=== PATIENT | male | born 1965 | race Caucasian/White ===

== ENCOUNTER 2019-07-09 11:49 | Inpatient (IN) | payer BC, OTHER ==
[~2019-07-09] VITALS: Ht 167.6 cm; Wt 65.8 kg
[2019-07-09] VITALS (9 sets, daily range): BP systolic 142–166; BP diastolic 68–88; O2SAT 93–98
[~2019-07-09 11:49] MED LIST: UNRESOLVED CLARIFICATION ENTRY XX SCH
[2019-07-09] MEDS: IPRATROPIUM 0.5MG/ALBUTEROL 2.5MG INH SOL UD 3ML (DUONEB)(J7620) NEB SCH ×2 (14:00→20:53)
--- NOTE | 2019-07-09 14:32 | HPEPDOC ---
General Date of Admission 07/09/19 Date of Service: Jul 09, 2019 Chief Complaint The patient is a 54-year-old male admitted with a reason for visit of Bilateral Pe,Pulmonary Inarct. Source: Patient Exam Limitations: No limitations Timing/Duration: 24 hours Severity: Moderate Associated Symptoms: Chest Pain, Shortness of breath History of Present Illness Patient is 54 years old male with past medical history of active smoking transferred from the [facility] with acute hypoxemic respiratory failure secondary to bilateral pulmonary emboli and lung infarcts. Patient stated that yesterday suddenly he started feeling right chest pain and developed shortness of breath. He went to the hospital and he was found to have on CTA moderate to large bilateral pulmonary emboli with multifocal areas of pulmonary infarction superimposed on account of moderate to severe COPD with biapical bullous changes. Patient received anticoagulation with Lovenox, oxygen therapy due to hypoxia, oxygen saturation was in the middle of 80s. When I saw patient, he was on the 3 L of oxygen resting comfortably on the bed. Patient denied any fever, chills, nausea, vomiting, palpitations, diarrhea or dysuria. He denied any recent cough, or increased sputum production. Also note patient does not have PCP and did not see doctors for years. Patient doesn't have any family history of hypercoagulability disorder. Also patient stated that he didn't lose weight and he didn't have colonoscopy. Home Medications No Active Prescriptions or Reported Meds Allergies Coded Allergies: No Known Allergies (Verified Allergy, Unknown, 07/09/19) Past Medical History Medical History Active smoker Family History Father had coronary artery diseases, EtOH abuse and diabetes Social History * Smoker: current smoker, greater than 1 pack/day Alcohol: Denies Drugs: denies A-FIB/CHADSVASC A-FIB History Current/History of A-Fib/PAF?: No Current PO Anticoag Therapy: No Review of Systems Constitutional: Denies: Chills, Fever Eyes: Denies: Pain, Vision change ENT: Denies: Head Aches Skin: Denies: Rash Pulmonary: Reports: Dyspnea, Pleuritic Chest Pain Cardiovascular: Denies: Palpitations Gastrointestinal: Denies: Nausea, Vomiting Genitourinary: Denies: Dysuria, Frequency Hematologic: Denies: Bruising, Bleeding Excessively Endocrine: Denies: Polydipsia Musculoskeletal: Denies: Neck Pain Neurological: Denies: Weakness, Numbness Psych: Reports: Mood Normal Physical Examination General Exam: Positive: Alert, Cooperative Eye Exam: Positive: PERRLA ENT Exam: Positive: Atraumatic, Mucous membr. moist/pink Neck Exam: Positive: Supple, JVD Chest Exam: Positive: Clear to auscultation Heart Exam: Positive: Rate Normal Telemetry: Positive: No significant arrhythmia Abdomen Exam: Positive: Normal bowel sounds Extremity Exam: Positive: Clubbing; Negative: Cyanosis Skin Exam: Positive: Nl turgor and temperature Neuro Exam: Positive: Strength at 5/5 X4 ext, Cranial Nerves 3-12 NL Psych Exam: Positive: Mental status NL Vital Signs HR 75 Assessment/Plan Patient is 54 years old male with past medical history of active smoking transferred from the [facility] with acute hypoxemic respiratory failure secondary to bilateral pulmonary emboli and lung infarcts. Patient stated that yesterday suddenly he started feeling right chest pain and developed shortness of breath. He went to the hospital and he was found to have on CTA moderate to large bilateral pulmonary emboli with multifocal areas of pulmonary infarction superimposed on account of moderate to severe COPD with biapical bullous changes. Problems (1) Acute respiratory failure with hypoxia Status: Acute Problem Text: Secondary to bilateral pulmonary emboli I started anticoagulation with Xarelto 15 mg twice a day Hypercoagulability workup ordered I recommended colonoscopy in the outpatient settings to rule out malignancy Follow-up with ict developer in the outpatient settings (2) Pulmonary embolism Status: Acute Response to Treatment: Uncontrolled Problem Text: See above Plan / VTE VTE Prophylaxis Ordered?: Yes ZAHRA STOVALL DO Jul 09, 2019 14:31
[2019-07-09 15:09] LABS: ABG TOTAL CO2 27.6 MEQ/L (22.0-29.0); ABG pH (ARTERIAL) 7.437 UNITS (7.350-7.450)
[2019-07-09 15:10] LABS: ABG BASE EXCESS 2.1 (-2.0-2.0); ABG HCO3 26.4 MEQ/L (22.0-26.0); ABG O2 SATURATION 96.6 % (95.0-99.0); ABG STANDARD HCO3 26.3 MEQ/L (22.0-26.0)
[2019-07-09 15:11] LABS: BASO % 0.2 % (0.0-1.0); HEMATOCRIT 41.2 % (42.0-52.0); HEMOGLOBIN 13.8 g/dl (13.5-17.5); LYMPH # 1.9 10^3/uL (1.5-5.0); LYMPH % 12.1 % (24.0-44.0); MEAN CORPUSCULAR HEMOGLOBIN 30.7 pg (27.0-33.0); MEAN CORPUSCULAR HGB CONC 33.5 g/dl (32.0-36.5); MEAN CORPUSCULAR VOLUME 91.6 fl (80.0-96.0); MONO # 1.2 10^3/uL (0.0-0.8); MONO % 7.5 % (0.0-5.0); NEUTROPHILS # 12.4 10^3/uL (1.5-8.5); NEUTROPHILS % 79.8 % (36.0-66.0); PLATELET COUNT, AUTOMATED 194 10^3/uL (150-450); WHITE BLOOD COUNT 15.5 10^3/uL (4.0-10.0)
[2019-07-09 15:29] LABS: INR 1.23; PROTHROMBIN TIME 15.2 SECONDS (11.8-14.0)
[2019-07-09] MEDS ORDERED: RIVAROXABAN 15 MG TAB (XARELTO) PO ONE (15:30)
[2019-07-09] MEDS ORDERED: IPRATROPIUM 0.5MG/ALBUTEROL 2.5MG INH SOL UD 3ML (DUONEB)(J7620) NEB PRN (16:00)
[2019-07-09] MEDS: ACETAMINOPHEN TAB 650MG DOSE (2X325MG) PO PRN (20:54)
[2019-07-10] VITALS (24 sets, daily range): BP systolic 129–152; BP diastolic 63–86; O2SAT 91–99
[2019-07-10] MEDS: IPRATROPIUM 0.5MG/ALBUTEROL 2.5MG INH SOL UD 3ML (DUONEB)(J7620) NEB SCH ×4 (02:10→19:56)
[2019-07-10 07:14] LABS: ALBUMIN 2.8 GM/DL (3.2-5.2); ALT/SGPT 12 U/L (12-78); BILIRUBIN,TOTAL 0.7 MG/DL (0.2-1.0); BLOOD UREA NITROGEN 11 MG/DL (7-18); CALCIUM LEVEL 8.5 MG/DL (8.5-10.1); CARBON DIOXIDE LEVEL 27 MEQ/L (21-32); CHLORIDE LEVEL 100 MEQ/L (98-107); CREATININE FOR GFR 0.85 MG/DL (0.70-1.30); GLOMERULAR FILTRATION RATE > 60.0 (>56); GLUCOSE, FASTING 94 MG/DL (70-100); POTASSIUM SERUM 4.1 MEQ/L (3.5-5.1); SODIUM LEVEL 133 MEQ/L (136-145); TOTAL PROTEIN 6.4 GM/DL (6.4-8.2)
[2019-07-10] MEDS: RIVAROXABAN 15 MG TAB (XARELTO) PO SCH ×2 (09:10→18:02)
[2019-07-10] MEDS ORDERED: SLF 3 ML SYR IV PRN (09:15)
[2019-07-10] MEDS: ACETAMINOPHEN TAB 650MG DOSE (2X325MG) PO PRN ×2 (09:28→16:29)
--- NOTE | 2019-07-10 10:14 | IPNPDOC ---
Text Note Date of Service The patient was seen on 07/10/19. NOTE Subjective: Pt continues to have shortness of breath, his oxygen requirements 3 L. Patient stated that he has a bilateral chest pain on the deep inspiration Objective: VITAL SIGNS: Please see below. GENERAL APPEARANCE: Well-nourished, well-developed, not in apparent distress HEENT: Normocephalic, atraumatic. Mucous members moist and pink CARDIOVASCULAR: Regular rate and rhythm. No murmurs, rubs or gallops. Radial pulses are intact. There is no lower extremity edema LUNGS: Diminished lung sounds ABDOMEN: Abdomen is soft and nontender. MUSCULOSKELETAL: Range of motion is intact in all 4 extremities NEUROLOGICAL: Cranial nerves II-12 are grossly intact. Speech is not dysarthric Assessment/Plan Patient is 54 years old male with past medical history of active smoking transferred from the [facility] with acute hypoxemic respiratory failure secondary to bilateral pulmonary emboli and lung infarcts. Patient stated that yesterday suddenly he started feeling right chest pain and developed shortness of breath. He went to the hospital and he was found to have on CTA moderate to large bilateral pulmonary emboli with multifocal areas of pulmonary infarction superimposed on account of moderate to severe COPD with biapical bullous changes. Problems (1) Acute respiratory failure with hypoxia Secondary to bilateral pulmonary emboli I started anticoagulation with Xarelto 15 mg twice a day Hypercoagulability workup ordered I recommended colonoscopy in the outpatient settings to rule out malignancy Follow-up with sweatband separator in the outpatient settings (2) Pulmonary embolism Review is as above and is usually only when he sees patient on last See above VSEsmer, I+O VSEsmer, I+O Laboratory Tests 07/09/19 14:45 07/10/19 06:09 Vital Signs Date Time Temp Pulse Resp B/P (MAP) Pulse Ox O2 Delivery O2 Flow Rate FiO2 07/10/19 08:00 99.0 84 18 144/68 (93) 94 Nasal Cannula 3.0 I&O- Last 24 Hours up to 6 AM 07/10/19 06:00 Intake Total 300 ml Output Total 1275 ml Balance -975 ml ZAHRA STOVALL DO Jul 10, 2019 10:14
--- NOTE | 2019-07-10 13:22 | ECHO ---
DATE OF STUDY: 07/09/2019 REFERRING PHYSICIAN: Dr. Edmund Arce INDICATION: Dyspnea, unspecified. HEIGHT: 107 cm WEIGHT: 61.2 kg 2-D MEASUREMENTS: Aortic root: 3.2 cm Left atrium: 3.3 cm Ventricular septum: 0.74 cm Posterior wall: 1.12 cm Left ventricle diastole: 5.2 cm Aortic annulus: 2.3 cm Inferior vena cava: 2.4 cm with marked reduction of respiratory variation suggestive of elevated CVP of at least 20 mmHg. DOPPLER MEASUREMENTS: No aortic regurgitation. Aortic valve velocity: 181 cm/s LVOT velocity: 112 cm/s LVOT VTI: 22.3 cm No mitral regurgitation. Mitral E velocity: 104 cm/s Mitral A velocity: 63.1 cm/s Mitral deceleration time: 174 ms Very mild tricuspid regurgitation. Estimated right ventricle systolic pressure at least 62 mmHg assuming an atrial pressure of at least 20 mmHg. No pulmonic regurgitation. Pulmonary acceleration time: 90 ms MITRAL ANNULAR TISSUE DOPPLER: E prime septal: 9.46 cm/s E prime lateral: 13.6 cm/s DESCRIPTION: Rhythm was sinus. Image quality was good. This is a 2-D, M-mode, color flow Doppler and pulse waved Doppler examination and included mitral annular tissue Doppler. CONCLUSIONS: 1. Suggestive of severe elevation of estimated right ventricle systolic pressure (at least 62 mmHg). Very mild tricuspid regurgitation. Normal right ventricle size and systolic function. Right atrium appeared normal in size. 2. Inferior vena cava dilatation with marked reduction of respiratory variation suggestive of elevated central venous pressure at least 20 mmHg. 3. Normal left ventricle internal dimensions and wall thickness. Normal regional LV wall motion and wall thickening. Normal LV systolic function. Left ventricular ejection fraction (LVEF) 65% by visual estimate. Normal LV diastolic function. 4. Tiny amount of pericardial fluid within normal limits. 5. Otherwise, normal-appearing echocardiogram-Doppler findings.
[2019-07-10] MEDS: SLF 3 ML SYR IV SCH ×2 (16:30→22:28)
--- NOTE | 2019-07-10 17:24 | REP ---
Clinical: Dyspnea. Pneumonia. Technique: PA and lateral. Comparison: None. Findings: Bilateral lower lobe infiltrates (right greater than left) and small right effusion consistent with multifocal pneumonia. No pneumothorax. Cardiac silhouette is normal. Skeletal structures are intact. Impression: Multifocal pneumonia (right greater than left). Electronically Signed by John Burgos MD 07/10/2019 05:15 P
[2019-07-10 18:09] LABS: BASO % 0.2 % (0.0-1.0); EOS % 0.1 % (0.0-3.0); HEMATOCRIT 40.9 % (42.0-52.0); HEMOGLOBIN 13.4 g/dl (13.5-17.5); LYMPH # 1.3 10^3/uL (1.5-5.0); LYMPH % 9.8 % (24.0-44.0); MEAN CORPUSCULAR HEMOGLOBIN 29.7 pg (27.0-33.0); MEAN CORPUSCULAR HGB CONC 32.8 g/dl (32.0-36.5); MEAN CORPUSCULAR VOLUME 90.7 fl (80.0-96.0); MONO # 1.1 10^3/uL (0.0-0.8); NEUTROPHILS # 11.1 10^3/uL (1.5-8.5); NEUTROPHILS % 81.4 % (36.0-66.0); PLATELET COUNT, AUTOMATED 209 10^3/uL (150-450); RED BLOOD COUNT 4.51 10^6/uL (4.30-6.10); WHITE BLOOD COUNT 13.6 10^3/uL (4.0-10.0)
[2019-07-10 18:30] LABS: BLOOD UREA NITROGEN 10 MG/DL (7-18); CALCIUM LEVEL 8.8 MG/DL (8.5-10.1); CARBON DIOXIDE LEVEL 26 MEQ/L (21-32); CHLORIDE LEVEL 99 MEQ/L (98-107); CREATININE FOR GFR 0.81 MG/DL (0.70-1.30); GLOMERULAR FILTRATION RATE > 60.0 (>56); GLUCOSE, FASTING 114 MG/DL (70-100); POTASSIUM SERUM 3.8 MEQ/L (3.5-5.1); SODIUM LEVEL 132 MEQ/L (136-145)
[2019-07-11] VITALS (23 sets, daily range): BP systolic 121–162; BP diastolic 60–82; O2SAT 88–97
[2019-07-11] MEDS: IPRATROPIUM 0.5MG/ALBUTEROL 2.5MG INH SOL UD 3ML (DUONEB)(J7620) NEB SCH ×4 (02:00→20:12)
[2019-07-11] MEDS: ACETAMINOPHEN TAB 650MG DOSE (2X325MG) PO PRN ×3 (04:17→18:31)
[2019-07-11] MEDS: SLF 3 ML SYR IV SCH ×3 (05:13→21:35)
[2019-07-11 06:11] LABS: HEMATOCRIT 39.8 % (42.0-52.0); HEMOGLOBIN 13.1 g/dl (13.5-17.5); MEAN CORPUSCULAR HEMOGLOBIN 29.8 pg (27.0-33.0); MEAN CORPUSCULAR HGB CONC 32.9 g/dl (32.0-36.5); MEAN CORPUSCULAR VOLUME 90.7 fl (80.0-96.0); PLATELET COUNT, AUTOMATED 214 10^3/uL (150-450); RED BLOOD COUNT 4.39 10^6/uL (4.30-6.10); WHITE BLOOD COUNT 11.7 10^3/uL (4.0-10.0)
[2019-07-11 06:34] LABS: BLOOD UREA NITROGEN 10 MG/DL (7-18); CALCIUM LEVEL 8.5 MG/DL (8.5-10.1); CARBON DIOXIDE LEVEL 26 MEQ/L (21-32); CHLORIDE LEVEL 100 MEQ/L (98-107); GLOMERULAR FILTRATION RATE > 60.0 (>56); GLUCOSE, FASTING 103 MG/DL (70-100); SODIUM LEVEL 132 MEQ/L (136-145)
--- NOTE | 2019-07-11 07:45 | ECGEPIP ---
[facility] Test Date: 2019-07-09 Pat Name: DRE NOLAND Department: Room: [place] [address] Gender: Male Staff Reporter: KIRSTEN : 1965 Requested By: ZAHRA STOVALL Order Number: [id number] Reading MD: Kevin Bonner Measurements Intervals [place] Rate: 64 P: 66 PA: 138 QRS: 61 QRSD: 97 T: 58 QT: 424 QTc: 439 Interpretive Statements Normal sinus rhythm ST elevation in multiple leads, consider ischemia or early repolarization CORRELATE CLINICALLY Comparison tracing not on file Electronically Signed on 07-11-2019 7:45:41 EST by Kevin Bonner
[2019-07-11] MEDS ORDERED: FLUBLOK(EGG FREE)(QUAD)INFLUENZA VACC 0.5ML SYRINGE (90682)18YRS&OLDER IM ONE (09:00)
[2019-07-11] MEDS: RIVAROXABAN 15 MG TAB (XARELTO) PO SCH ×2 (10:31→17:27)
--- NOTE | 2019-07-11 10:51 | IPNPDOC ---
Text Note Date of Service The patient was seen on 07/11/19. NOTE Subjective: Pt continues to have shortness of breath, his oxygen requirements 2 L. Patient stated that he has a bilateral chest pain on the deep inspiration. Patient was febrile yesterday. Fever subsided after Tylenol Objective: VITAL SIGNS: Please see below. GENERAL APPEARANCE: Well-nourished, well-developed, not in apparent distress HEENT: Normocephalic, atraumatic. Mucous members moist and pink CARDIOVASCULAR: Regular rate and rhythm. No murmurs, rubs or gallops. Radial pulses are intact. There is no lower extremity edema LUNGS: Diminished lung sounds ABDOMEN: Abdomen is soft and nontender. MUSCULOSKELETAL: Range of motion is intact in all 4 extremities NEUROLOGICAL: Cranial nerves II-12 are grossly intact. Speech is not dysarthric Assessment/Plan Patient is 54 years old male with past medical history of active smoking transferred from the [facility] with acute hypoxemic respiratory failure secondary to bilateral pulmonary emboli and lung infarcts. Patient stated that yesterday suddenly he started feeling right chest pain and developed shortness of breath. He went to the hospital and he was found to have on CTA moderate to large bilateral pulmonary emboli with multifocal areas of pulmonary infarction superimposed on account of moderate to severe COPD with biapical bullous changes. Problems (1) Acute respiratory failure with hypoxia Secondary to bilateral pulmonary emboli I started anticoagulation with Xarelto 15 mg twice a day Hypercoagulability workup pending I recommended colonoscopy in the outpatient settings to rule out malignancy Follow-up with it consulting manager in the outpatient settings (2) Pulmonary embolism See above Fever Most likely secondary to pulmonary embolism Blood culture pending Respiratory viral panel negative Patient is afebrile in the morning, he doesn't have cough, sputum, diarrhea, weakness VS,Fishbone, I+O VS, Fishbone, I+O Laboratory Tests 07/10/19 17:48 07/11/19 05:35 Vital Signs Date Time Temp Pulse Resp B/P (MAP) Pulse Ox O2 Delivery O2 Flow Rate FiO2 07/11/19 08:00 2.0 07/11/19 08:00 98.0 62 20 121/63 (82) 90 Nasal Cannula I&O- Last 24 Hours up to 6 AM 07/11/19 06:00 Intake Total 2430 ml Output Total 925 ml Balance 1505 ml ZAHRA STOVALL DO Jul 11, 2019 10:51
[2019-07-12] VITALS: O2SAT 93
[2019-07-12 00:12] VITALS: BP 161/79
[2019-07-12] MEDS: IPRATROPIUM 0.5MG/ALBUTEROL 2.5MG INH SOL UD 3ML (DUONEB)(J7620) NEB SCH ×3 (01:34→14:00)
[2019-07-12] MEDS: SLF 3 ML SYR IV SCH ×2 (05:11→14:00)
[2019-07-12 05:40] LABS: HEMATOCRIT 38.3 % (42.0-52.0); MEAN CORPUSCULAR HEMOGLOBIN 30.4 pg (27.0-33.0); MEAN CORPUSCULAR HGB CONC 33.9 g/dl (32.0-36.5); MEAN CORPUSCULAR VOLUME 89.5 fl (80.0-96.0); PLATELET COUNT, AUTOMATED 238 10^3/uL (150-450); RED BLOOD COUNT 4.28 10^6/uL (4.30-6.10); WHITE BLOOD COUNT 9.3 10^3/uL (4.0-10.0)
[2019-07-12 06:00] VITALS: BP 121/71
[2019-07-12 06:05] LABS: BLOOD UREA NITROGEN 11 MG/DL (7-18); CALCIUM LEVEL 8.9 MG/DL (8.5-10.1); CARBON DIOXIDE LEVEL 25 MEQ/L (21-32); CHLORIDE LEVEL 99 MEQ/L (98-107); CREATININE FOR GFR 0.78 MG/DL (0.70-1.30); GLOMERULAR FILTRATION RATE > 60.0 (>56); GLUCOSE, FASTING 101 MG/DL (70-100); POTASSIUM SERUM 4.1 MEQ/L (3.5-5.1); SODIUM LEVEL 132 MEQ/L (136-145)
[2019-07-12] MEDS: RIVAROXABAN 15 MG TAB (XARELTO) PO SCH (08:20)
[2019-07-12] MEDS ORDERED: lisinopriL 5 MG TAB PO SCH (09:00)
[2019-07-12 09:30] VITALS: BP 123/70
[2019-07-12] MEDS ORDERED: LISI-542 PO (13:58)
[2019-07-12] MEDS ORDERED: XARE15TA PO (13:58)
[2019-07-12 14:00] VITALS: BP 167/89
[2019-07-12] MEDS: ACETAMINOPHEN TAB 650MG DOSE (2X325MG) PO PRN (14:30)
[2019-07-12] MEDS ORDERED: lisinopriL 10 MG TAB PO ONE (15:00)
--- NOTE | 2019-07-12 18:26 | DS.PDOC ---
Discharge Summary General Date of Admission Jul 09, 2019 at 13:25 Date of Discharge 07/12/19 Discharge Summary PROCEDURES PERFORMED DURING STAY: None ADMITTING DIAGNOSES: Acute respiratory failure with hypoxia Pulmonary embolism Fever DISCHARGE DIAGNOSES: Acute respiratory failure with hypoxia Pulmonary embolism Fever COMPLICATIONS/CHIEF COMPLAINT: Bilateral Pe,Pulmonary Inarct. HISTORY OF PRESENT ILLNESS: Patient is 54 years old male with past medical history of active smoking transferred from the [facility] with acute hypoxemic respiratory failure secondary to bilateral pulmonary emboli and lung infarcts. Patient stated that yesterday suddenly he started feeling right chest pain and developed shortness of breath. He went to the hospital and he was found to have on CTA moderate to large bilateral pulmonary emboli with multifocal areas of pulmonary infarction superimposed on account of moderate to severe COPD with biapical bullous changes. Patient received anticoagulation with Lovenox, oxygen therapy due to hypoxia, oxygen saturation was in the middle of 80s. When I saw patient, he was on the 3 L of oxygen resting comfortably on the bed. Patient denied any fever, chills, nausea, vomiting, palpitations, diarrhea or dysuria. He denied any recent cough, or increased sputum production. Also note patient does not have PCP and did not see doctors for years. Patient doesn't have any family history of hypercoagulability disorder. Also patient stated that he didn't lose weight and he didn't have colonoscopy. HOSPITAL COURSE: The following issue addressed Acute respiratory failure with hypoxia Resolved Secondary to bilateral pulmonary emboli I started anticoagulation with Xarelto 15 mg twice a day Hypercoagulability workup pending. Today patient breathing markedly improved he was able to walk w/o oxygen. He denies any chest pain, palpitations. I recommended colonoscopy in the outpatient settings to rule out malignancy Follow-up with pattern maker in the outpatient settings in 2-3 days (2) Pulmonary embolism See above Fever Most likely secondary to pulmonary embolism Blood culture pending Respiratory viral panel negative Patient is afebrile in the morning, he doesn't have cough, sputum, diarrhea, weakness DISCHARGE MEDICATIONS: Please see below. ALLERGIES: Please see below. PHYSICAL EXAMINATION ON DISCHARGE: VITAL SIGNS: Please see below. GENERAL APPEARANCE: Well-nourished, well-developed, not in apparent distress HEENT: Normocephalic, atraumatic. Mucous members moist and pink CARDIOVASCULAR: Regular rate and rhythm. No murmurs, rubs or gallops. Radial pulses are intact. There is no lower extremity edema LUNGS: Diminished lung sounds ABDOMEN: Abdomen is soft and nontender. MUSCULOSKELETAL: Range of motion is intact in all 4 extremities NEUROLOGICAL: Cranial nerves II-12 are grossly intact. Speech is not dysarthric LABORATORY DATA: Please see below. IMAGING: See above PROGNOSIS: Favorable ACTIVITY: As tolerated. DIET: Cardiac DISCHARGE PLAN: Home DISPOSITION: Home, Self-Care. DISCHARGE INSTRUCTIONS: Follow-up with pattern maker and PCP ITEMS TO FOLLOWUP ON ON OUTPATIENT: Avoid heavy physical activities for next 10 days DISCHARGE CONDITION: Stable TIME SPENT ON DISCHARGE: Greater than 20 minutes. Vital Signs/I&Os Vital Signs Date Time Temp Pulse Resp B/P (MAP) Pulse Ox O2 Delivery O2 Flow Rate FiO2 07/12/19 14:00 100.3 68 20 167/89 (115) 93 Room Air 07/12/19 06:00 1.0 I&O- Last 24 Hours up to 6 AM 07/12/19 06:00 Intake Total 1860 ml Output Total 1425 ml Balance 435 ml Laboratory Data Labs 24H Laboratory Tests 2 07/12/19 05:20: Nucleated Red Blood Cells % (auto) 0.0, Anion Gap 8, Glomerular Filtration Rate > 60.0, Calcium Level 8.9 CBC/BMP Laboratory Tests 07/12/19 05:20 Microbiology Microbiology 07/10/19 Stool Occult Blood ([facility]) - Final, Complete 07/10/19 Blood Culture - Preliminary, Resulted No Growth after 48 hours. All Specime... 07/10/19 Respiratory Virus Panel (PCR) ([facility]) - Final, Complete Discharge Medications Scheduled Lisinopril (Lisinopril) 5 Mg Tablet, 5 MG PO DAILY Rivaroxaban (Xarelto) 15 Mg Tablet, 15 MG PO BID@18 You will need to take 15 mg twice a day for next 19 days, then take 20 mg daily at least for 6 months Allergies Coded Allergies: No Known Allergies (Verified Allergy, Unknown, 07/09/19) ZAHRA STOVALL DO Jul 12, 2019 18:26
[2019-07-13] MEDS ORDERED: lisinopriL 10 MG TAB PO SCH (09:00)
== END 2019-07-12 15:06 | disposition home or self-care (01) | DRG 134 ==
LOC: M PCU 13:25 → M MSPAV 07-12 00:12
PROVIDERS: ADMIT Family Medicine; ATTEND Internal Medicine
DX: I26.99 Other pulmonary embolism without acute cor pulmonale (principal); J96.01 Acute respiratory failure with hypoxia; R50.9 Fever, unspecified; J44.9 Chronic obstructive pulmonary disease, unspecified; F17.200 Nicotine dependence, unspecified, uncomplicated

== ENCOUNTER → 2020-04-13 | Outpatient (REF) | payer OTHER ==
[~2020-04-13] MED LIST changes: +LISI-542 PO; -UNRESOLVED CLARIFICATION ENTRY XX SCH; +XARE15TA PO
[2020-04-13 13:02] LABS: BASO # 0.1 10^3/uL (0.0-0.2); BASO % 1.1 % (0.0-1.0); EOS # 0.2 10^3/uL (0.0-0.5); EOS % 4.4 % (0.0-3.0); HEMOGLOBIN 14.7 g/dl (13.5-17.5); LYMPH # 2.2 10^3/uL (1.5-5.0); LYMPH % 39.6 % (24.0-44.0); MEAN CORPUSCULAR HEMOGLOBIN 31.1 pg (27.0-33.0); MEAN CORPUSCULAR HGB CONC 33.4 g/dl (32.0-36.5); MONO # 0.7 10^3/uL (0.0-0.8); MONO % 13.1 % (0.0-5.0); NEUTROPHILS # 2.3 10^3/uL (1.5-8.5); NEUTROPHILS % 41.4 % (36.0-66.0); PLATELET COUNT, AUTOMATED 271 10^3/uL (150-450); RED BLOOD COUNT 4.73 10^6/uL (4.30-6.10); WHITE BLOOD COUNT 5.5 10^3/uL (4.0-10.0)
[2020-04-13 13:13] LABS: ALBUMIN 3.7 GM/DL (3.2-5.2); ALT/SGPT 25 U/L (12-78); AMYLASE 81 U/L (25-115); BILIRUBIN,TOTAL 0.2 MG/DL (0.2-1.0); BLOOD UREA NITROGEN 16 MG/DL (7-18); CALCIUM LEVEL 9.3 MG/DL (8.5-10.1); CARBON DIOXIDE LEVEL 29 MEQ/L (21-32); CHLORIDE LEVEL 103 MEQ/L (98-107); CREATININE FOR GFR 0.88 MG/DL (0.70-1.30); GLOMERULAR FILTRATION RATE > 60.0 (>56); GLUCOSE, FASTING 87 MG/DL (70-100); LIPASE 183 U/L (73-393); MAGNESIUM LEVEL 2.2 MG/DL (1.8-2.4); POTASSIUM SERUM 4.4 MEQ/L (3.5-5.1); SODIUM LEVEL 137 MEQ/L (136-145); TOTAL PROTEIN 7.2 GM/DL (6.4-8.2)
== END ==
LOC: M SFHCCLAY 07:38
PROVIDERS: ATTEND Family Medicine
DX: R10.84 Generalized abdominal pain (principal); I10 Essential (primary) hypertension; R63.5 Abnormal weight gain

== ENCOUNTER 2020-08-19 10:23 | Emergency (ER) | payer BC, OTHER ==
[~2020-08-19] VITALS: Ht 167.6 cm; Wt 65.8 kg
[~2020-08-19 10:23] MED LIST changes: -LISI-542 PO; +LISI-898 PO
--- OUTSIDE RECORDS SUMMARY | 2020-08-19 10:29 | CCD ---
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 A ctive confirmed 469741657 ALLERGIES No Known Allergies ENCOUNTERS from 1965 to 2020-08-14 Encounter Location Date Provider Diagnosis [facility] [address] [place] [address] Aug Phuc Oh IMMUNIZATIONS No Information SOCIAL HISTORY Tobacco Use: Social History Observation Description Date Details (start date - stop date) Former Smoker Sex Assigned At : Social History Observation Description Sex Assigned At Unknown Audit Question Answer Notes Total Score: 5 Interpretation: Alcohol Education Language: Question Answer Notes Languages spoken: Amharic Uatsdin: Question Answer Notes Uatsdin 21 Jainism Domestic Violence: Question Answer Notes Status: Sexual Hx: Question Answer Notes Had sex in the last 12 months (vaginal, oral, or anal)? Yes Have you ever had an STD? No Prevention Strategies discussed: Other with Women only Use protection? No Drug and Alcohol Question Answer Notes Total Score: 0 Interpretation: No problems reported Tobacco Use: Question Answer Notes Are you a: former smoker Smoking Cessation Information Given 07/26/2019 Additional Findings: Tobacco Non-User Ex-moderate cigarette smoker (10-19/day) How long has it been since you last smoked? 6-12 months REASON FOR REFERRAL No Information VITAL SIGNS No information MEDICATIONS Medication SIG (Take, Route, Frequency, Duration) Notes Start Da te End Date Status Xarelto 20 MG 1 tablet with food Orally Once a day for 90 day(s) Active Xarelto 20 MG TAKE ONE TABLET BY MOUTH EVERY DAY WITH FOOD for 90 Active Lisinopril 5 MG 1 tablet Orally Once a day for 90 days Active PROCEDURES No Information RESULTS No Results REASON FOR VISIT [place] follow up-tachycardia MEDICAL (GENERAL) HISTORY Type Description Date Medical History HTN Medical History Hx of PE Surgical History Lasik eye surgery Hospitalization History [facility]- Bilateral PE 07/09/19 Goals Section No Information Health Concerns No Information MEDICAL EQUIPMENT No Information MENTAL STATUS No Information FUNCTIONAL STATUS No Information ASSESSMENTS No Information PLAN OF TREATMENT Medication Medication Name Sig Start Date Stop Date Xarelto 20 MG 1 tablet with food Orally Once a day for 90 day( s) Lisinopril 5 MG 1 tablet Orally Once a day for 90 days Next Appt Details Provider Name:Phuc Sukumar Oh, 09:00:00 AM, [address] [place] [address], [id number], Insurance Providers Payer Name Payer Address Payer Phone Insured Name Patient Relati onship to Insured Coverage Start Date Coverage End Date [facility] [address] [facility] [id number] GE [id number]
--- OUTSIDE RECORDS SUMMARY | 2020-08-19 10:30 | CCD | Continuity of Care Document ---
Author Author [facility] Address [address] [place] [address] Phone Care Team Providers Care Balcony Worker Name Role Phone SE LOCKETT PCP Allergies, Adverse Reactions, Alerts No allergy information available. Medications No medication information available. Problems No problem information available. Procedures Procedure Date Performed Status CHEST 1 VIEW August 12, 2020 completed Relevant Diagnostic Tests and/or Laboratory Data Laboratory Results Test Date/Time Result Interpretation Reference Range Result Co mment Performing Site White Blood Count August 12, 2020 12:50pm 5.5 4.0-1 0.0 [facility] Main Lab, [address] [place] [phone] Red Blood Count August 12, 2020 12:50pm 4.98 4.50-6. 00 [facility] Main Lab, [address] [place] [address] Hemoglobin August 12, 2020 12:50pm 15.2 14.0-18.0 [facility] Main [facility], [address] [facility] [address] Hematocrit August 12, 2020 12:50pm 42.9 42.0-54.0 [facility] Main [facility], [address] [place] [address] Mean Corpuscular Volume August 12, 2020 12:50pm 86.1 80-96 [facility] Main [facility], [address] [place] [address] Mean Corpuscular Hemoglobin August 12, 2020 12:50pm 30.5 27.0-31.0 [facility] Main [facility], [address] [facility] [address] Mean Corpuscular Hgb Concent Diff August 12, 2020 12:50pm 35.4 32.0-36.0 [facility] Main [facility], [address] [facility] [address] Red Cell Distribution Width August 12, 2020 12:50pm 11.7 10.0-14.5 [facility] Main [facility], [address] [facility] [address] Platelet Count August 12, 2020 12:50pm 245 172-450 [facility] Main [facility], [address] [facility] [address] Mean Platelet Volume August 12, 2020 12:50pm 8.6 9. 0-13.0 [facility] Main [facility], [address] [facility] [address] Granulocytes % (Auto) August 12, 2020 12:50pm 46.7 5 0-80.0 [facility] Main [facility], [address] [facility] [address] Immature Granulocytes % August 12, 2020 12:50pm 0.2 0.0-0.2 [facility] Main [facility], [address] [facility] [address] Lymphocytes % August 12, 2020 12:50pm 40.0 25.0-50.0 [facility] Main [facility], [address] [facility] [address] Monocytes % August 12, 2020 12:50pm 10.3 2.0-10.0 [facility] Main [facility], [address] [facility] [address] Eosinophils % August 12, 2020 12:50pm 2.4 0-5.0 [facility] Main [facility], [address] [facility] [address] Basophils % August 12, 2020 12:50pm 0.4 0.0-2.0 [facility], [address] [facility] [address] Granulocytes # August 12, 2020 12:50pm 2.6 2.0-8.00 [facility], [address] [facility] [address] Immature Granulocytes # August 12, 2020 12:50pm 0.0 0.0-0.2 [facility], [address] [facility] [address] Lymphocytes # August 12, 2020 12:50pm 2.2 1.0-5.0 [facility] Main [facility], [address] [facility] [address] Monocytes # August 12, 2020 12:50pm 0.6 0.10-1.20 [facility] Main [facility], [address] [facility] [address] Eosinophils # August 12, 2020 12:50pm 0.1 0.0-0.5 [facility], [address] [facility] [address] Basophils # August 12, 2020 12:50pm 0.0 0.0-0.2 [facility], [address] [facility] [address] Prothrombin Time August 12, 2020 12:50pm 11.1 9.1-11 .6 [facility], [address] [facility] [address] INR International Normalized Ratio August 12, 2020 12:50pm 1.07 0.87-1.06 [facility] Main [facility], [address] [facility] [address] Partial Thromboplastin Time - Robert August 12, 2020 12:50pm 26.3 21.2-27.3 [facility], [address] [facility] [address] Glucose Level August 12, 2020 12:50pm 94 74-106 [facility] Main [facility], [address] [facility] [address] Blood Urea Nitrogen August 12, 2020 12:50pm 12 7-1 8 [facility] Main [facility], [address] [facility] [address] Creatinine August 12, 2020 12:50pm 1.00 0.7-1.3 [facility] Main [facility], [address] [facility] [address] Sodium Level August 12, 2020 12:50pm 135 136-145 [facility] Main [facility], [address] [facility] [address] Potassium Level August 12, 2020 12:50pm 3.4 3.5-5.1 [facility] Main [facility], [address] [facility] [address] Chloride Level August 12, 2020 12:50pm 98 98-107 [facility] Main [facility], [address] [facility] [address] Carbon Dioxide Level August 12, 2020 12:50pm 29 21 -32 [facility], [address] [facility] [address] Calcium Level August 12, 2020 12:50pm 9.5 8.5-10.1 [facility] Main [facility], [address] [facility] [address] Anion Gap August 12, 2020 12:50pm 8.0 5-12 [facility] Main [facility], [address] [facility] [address] Estimated GFR (MDRD) August 12, 2020 12:50pm 78 GFR IS CALCULATED IN mL/min/1.73m2 NORMAL FUNCTION: >90MILDLY DECREASED: 60-89MILDY TO MODERATELY DECREASED: 45-59 MODERATELY TO SEVERELY DECREASED: 30-44SEVERELY DECREASED: 15-29RENAL FAILURE: <15 [facility] Main Lab, [address] [facility] [address] Aspartate Amino Transf (AST/SGOT) August 12, 2020 12:50pm 25 15-37 [facility], [address] [facility] [address] Alanine Aminotransferase (ALT/SGPT) August 12, 2020 12:50pm 35 12-78 [facility] Main [facility], [address] [facility] [address] Alkaline Phosphatase August 12, 2020 12:50pm 62 46 -116 [facility], [address] [facility] [address] Total Bilirubin August 12, 2020 12:50pm 0.4 0.2-1.0 [facility], [address] [facility] [address] Total Protein August 12, 2020 12:50pm 8.4 6.4-8.2 [facility], [address] [facility] [address] Albumin August 12, 2020 12:50pm 4.4 3.4-5.0 [facility], [address] [facility] [address] Lipase August 12, 2020 12:50pm 145 73-393 [facility], [address] [facility] [address] Troponin I August 12, 2020 7:16pm 0.043 0.0-0.056 [facility] Main [facility], [address] [facility] [address] Thyroid Stimulating Hormone (TSH) August 12, 2020 12:50pm 4.490 0.36-3.74 [facility], [address] [facility] [address] Magnesium Level August 12, 2020 12:50pm 1.8 1.8-2.4 [facility] Main [facility], [address] [facility] [address] Free Thyroxine August 12, 2020 12:50pm 1.4 0.76-1.[address] [place] [address] Main Lab, [address] [place], [place] [id number] Health Concerns No known health concerns documented Chief Complaint and Reason for Visit Reason for Visit RAPID HEART RATE Encounters Encounter Location(s) Arrival/Admit Date Discharge/Depart Date Provider(s) Departed Emergency [facility], [facility] August 12, 2020 12:39p m August 12, 2020 8:00pm BATOOL GALAVIZ @ Assessments No Assessments Information Available Functional Status No Functional Status information available Goals No Goals Information Available Immunizations No Immunization Information Available Mental Status No Mental Status Information Available Medical Equipment No Medical Equipment Information available Insurance Providers Guarantor DRE NOLAND Address [address] [place] [address] [address] [facility] [id number] Contact Info. Home Phone: Payer Policy Id Coverage Id Subscriber's Name Subscriber Id Effect [id number] Date Expiration Date [facility] [id number] ADRIANO NOLAND JulyJuly 09, 2021 [facility] [id number] ADRIANO NOLAND 2020 Social History Assigned Sex Male Vital Signs No vital signs result information available.
--- OUTSIDE RECORDS SUMMARY | 2020-08-19 10:30 | CCD ---
Author Author [facility] Organization [facility] Address Unknown Phone Unavailable Care Team Providers Care Supervisor [employer] Name Role Phone MAMEWGage CHRISTOPHER PA Unavailable Unavailable SYMENOW, G CHRISTOPHER PA Unavailable Unavailable SYMENOW, G CHRISTOPHER PA Unavailable Unavailable SYMENOW, G CHRISTOPHER PA Unavailable Unavailable SYMENOW, G CHRISTOPHER PA Unavailable Unavailable SYMENOW, G CHRISTOPHER PA Unavailable Unavailable SYMENOW, G CHRISTOPHER PA Unavailable Unavailable SYMENOW, G CHRISTOPHER PA Unavailable Unavailable SYMENOW, G CHRISTOPHER PA Unavailable Unavailable SYMENOW, G CHRISTOPHER PA Unavailable Unavailable SYMENOW, G CHRISTOPHER PA Unavailable Unavailable SYMENOW, G CHRISTOPHER PA Unavailable Unavailable SYMENOW, G CHRISTOPHER PA Unavailable Unavailable SYMENOW, G CHRISTOPHER PA Unavailable Unavailable SYMENOW, G CHRISTOPHER PA Unavailable Unavailable SYMENOW, G CHRISTOPHER PA Unavailable Unavailable SYMENOW, G CHRISTOPHER PA Unavailable Unavailable Giulia GALAVIZ PA Unavailable Unavailable Giulia GALAVIZ PA Unavailable Unavailable Giulia GALAVIZ PA Unavailable Unavailable Giulia GALAVIZ PA Unavailable Unavailable Giulia GALAVIZ PA Unavailable Unavailable GUILLAUME, L BATOOL PA Unavailable Unavailable GUILLAUME, L BATOOL PA Unavailable Unavailable GUILLAUME, L BATOOL PA Unavailable Unavailable GUILLAUME, L BATOOL PA Unavailable Unavailable GUILLAUME, L BATOOL PA Unavailable Unavailable GUILLAUME, L BATOOL PA Unavailable Unavailable GUILLAUME, L BATOOL PA Unavailable Unavailable GUILLAUME, L BATOOL PA Unavailable Unavailable GUILLAUME, L BATOOL PA Unavailable Unavailable GUILLAUME, L BATOOL PA Unavailable Unavailable GUILLAUME, L BATOOL PA Unavailable Unavailable GUILLAUME, L BATOOL PA Unavailable Unavailable GUILLAUME, L BATOOL PA Unavailable Unavailable GUILLAUME, L BATOOL PA Unavailable Unavailable ZOHRA, ASHER MD Unavailable Unavailable ZOHRA, ASHER MD Unavailable Unavailable ZOHRA, ASHER MD Unavailable Unavailable ZOHRA, ASHER MD Unavailable Unavailable ZOHRA, ASHER MD Unavailable Unavailable ZOHRA, ASHER MD Unavailable Unavailable ZOHRA, ASHER MD Unavailable Unavailable ZOHRA, ASHER MD Unavailable Unavailable ZOHRA, ASHER MD Unavailable Unavailable ZOHRA, ASHER MD Unavailable Unavailable ZOHRA, ASHER MD Unavailable Unavailable ZOHRA, ASHER MD Unavailable Unavailable ZOHRA, ASHER MD Unavailable Unavailable ZOHRA, ASHER MD Unavailable Unavailable ZOHRA, ASHER MD Unavailable Unavailable ZOHRA, ASHER MD Unavailable Unavailable ZOHRA, ASHER MD Unavailable Unavailable ZOHRA, ASHER MD Unavailable Unavailable ZOHRA, ASHER MD Unavailable Unavailable ZOHRA, ASHER MD Unavailable Unavailable ZOHRA, ASHER MD Unavailable Unavailable ZOHRA, ASHER MD Unavailable Unavailable ZOHRA, ASHER MD Unavailable Unavailable ZOHRA, ASHER MD Unavailable Unavailable ZOHRA, ASHER MD Unavailable Unavailable ZOHRA, ASHER MD Unavailable Unavailable ZOHRA, ASHER MD Unavailable Unavailable ZOHRA, ASHER MD Unavailable Unavailable ZOHRA, ASHER MD Unavailable Unavailable ZOHRA, ASHER MD Unavailable Unavailable ZOHRA, ASHER MD Unavailable Unavailable ZOHRA, ASHER MD Unavailable Unavailable ZOHRA, ASHER MD Unavailable Unavailable ZOHRA, ASHER MD Unavailable Unavailable ZOHRA, ASHER MD Unavailable Unavailable ZOHRA, ASHER MD Unavailable Unavailable ZOHRA, ASHER MD Unavailable Unavailable ZOHRA, ASHER MD Unavailable Unavailable ZOHRA, ASHER MD Unavailable Unavailable ZOHRA, ASHER MD Unavailable Unavailable ZOHRA, ASHER MD Unavailable Unavailable ZOHRAASHER MD Unavailable [facility] Unavailable Unavailable THATTE, V CHRIS PA-C Unavailable Unavailable THATTE, V CHRIS PA-C Unavailable Unavailable THATTE, V CHRIS PA-C Unavailable Unavailable THATTE, V CHRIS PA-C Unavailable Unavailable THATTE, V CHRIS PA-C Unavailable Unavailable THATTE, V CHRIS PA-C Unavailable Unavailable THATTE, V CHRIS PA-C Unavailable Unavailable THATTE, V CHRIS PA-C Unavailable Unavailable THATTE, V CHRIS PA-C Unavailable Unavailable THATTE, V CHRIS PA-C Unavailable Unavailable THATTE, V CHRIS PA-C Unavailable Unavailable THATTE, V CHRIS PA-C Unavailable Unavailable HUIZENGA, Sukumar FERREIRAON DO Unavailable Unavailable HUIZENGA, Sukumar FERREIRAON DO Unavailable Unavailable HUIZENGA, Sukumar SAEZ DO Unavailable Unavailable HUIZENGA, Sukumar SAEZ DO Unavailable Unavailable HUIZENGA, Sukumar SAEZ DO Unavailable Unavailable HUIZENGA, Sukumar SAEZ DO Unavailable Unavailable HUIZENGA, Sukumar SAEZ DO Unavailable Unavailable HUIZENGA, Sukumar SAEZ DO Unavailable Unavailable HUIZENGA, Sukumar SAEZ DO Unavailable Unavailable HUIZENGA, Sukumar SAEZ DO Unavailable Unavailable HUIZENGA, Sukumar SAEZ DO Unavailable Unavailable HUIZENGA, Sukumar SAEZ DO Unavailable Unavailable HUIZENGA, Sukumar SAEZ DO Unavailable Unavailable HUIZENGA, Sukumar SAEZ DO Unavailable Unavailable HUIZENGA, Sukumar SAEZ DO Unavailable Unavailable HUIZENGA, Sukumar SAEZ DO Unavailable Unavailable HUIZENGA, Sukumar SAEZ DO Unavailable Unavailable HUIZENGA, Sukumar SAEZ DO Unavailable Unavailable HUIZENGA, Sukumar SAEZ DO Unavailable Unavailable HUIZENGA, Sukumar SAEZ DO Unavailable Unavailable HUIZENGA, Sukumar SAEZ DO Unavailable Unavailable HUIZENGA, Sukumar SAEZ DO Unavailable Unavailable HUIZENGA, Sukumar SAEZ DO Unavailable Unavailable HUIZENGA, Sukumar SAEZ DO Unavailable Unavailable HUIZENGA, Sukumar SAEZ DO Unavailable Unavailable HUIZENGA, Sukumar SAEZ DO Unavailable Unavailable HUIZENGA, Sukumar SAEZ DO Unavailable Unavailable HUIZENGA, Sukumar SAEZ DO Unavailable Unavailable HUIZENGA, Sukumar SAEZ DO Unavailable Unavailable HUIZENGA, Sukumar SAEZ DO Unavailable Unavailable HUIZENGA, Sukumar SAEZ DO Unavailable Unavailable HUIZENGA, Sukumar SAEZ DO Unavailable Unavailable HUIZENGA, Sukumar SAEZ DO Unavailable Unavailable HUIZENGA, Sukumar SAEZ DO Unavailable Unavailable HUIZENGA, Sukumar SAEZ DO Unavailable Unavailable HUIZENGA, Sukumar SAEZ DO Unavailable Unavailable HUIZENGA, Sukumar SAEZ DO Unavailable Unavailable HUIZENGA, Sukumar SAEZ DO Unavailable Unavailable HUIZENGA, Sukumar SAEZ DO Unavailable Unavailable HUIZENGA, Sukumar SAEZ DO Unavailable Unavailable HUIZENGA, Sukumar SAEZ DO Unavailable Unavailable HUIZENGA, Sukumar SAEZ DO Unavailable Unavailable HUIZENGA, Sukumar SAEZ DO Unavailable Unavailable HUIZENGA, Sukumar SAEZ DO Unavailable Unavailable HUIZENGA, Sukumar SAEZ DO Unavailable Unavailable HUIZENGA, Sukumar SAEZ DO Unavailable Unavailable HUIZENGA, Sukumar SAEZ DO Unavailable Unavailable HUIZENGA, Sukumar SAEZ DO Unavailable Unavailable HUIZENGA, Sukumar SAEZ DO Unavailable Unavailable HUIZENGA, Sukumar SAEZ DO Unavailable Unavailable HUIZENGA, Sukumar SAEZ DO Unavailable Unavailable HUIZENGA, Sukumar SAEZ DO Unavailable Unavailable HUIZENGA, Sukumar SAEZ DO Unavailable Unavailable HUIZENGA, Sukumar SAEZ DO Unavailable Unavailable HUIZENGA, Sukumar SAEZ DO Unavailable Unavailable HUIZENGA, Sukumar SAEZ DO Unavailable Unavailable HUIZENGA, Sukumar SAEZ DO Unavailable Unavailable HUIZENGA, Sukumar SAEZ DO Unavailable Unavailable HUIZENGA, Sukumar SAEZ DO Unavailable Unavailable HUIZENGA, Sukumar SAEZ DO Unavailable Unavailable HUIZENGA, Sukumar SAEZ DO Unavailable Unavailable HUIZENGA, Sukumar SAEZ DO Unavailable Unavailable HUIZENGA, Sukumar SAEZ DO Unavailable Unavailable HUIZENGA, Sukumar SAEZ DO Unavailable Unavailable HUIZENGA, Sukumar SAEZ DO Unavailable Unavailable HUIZENGA, Sukumar SAEZ DO Unavailable Unavailable HUIZENGA, Sukumar SAEZ DO Unavailable Unavailable HUIZENGA, Sukumar SAEZ DO Unavailable Unavailable HUIZENGA, Sukumar SAEZ DO Unavailable Unavailable HUIZENGA, Sukumar SAEZ DO Unavailable Unavailable HUIZENGA, Sukumar SAEZ DO Unavailable Unavailable HUIZENGA, Sukumar SAEZ DO Unavailable Unavailable HUIZENGA, Sukumar SAEZ DO Unavailable Unavailable THATTE, V CHRIS PA-C Unavailable Unavailable THATTE, V CHRIS PA-C Unavailable Unavailable THATTE, V CHRIS PA-C Unavailable Unavailable THATTE, V CHRIS PA-C Unavailable Unavailable THATTE, V CHRIS PA-C Unavailable Unavailable THATTE, V CHRIS PA-C Unavailable Unavailable THATTE, V CHRIS PA-C Unavailable Unavailable THATTE, V CHRIS PA-C Unavailable Unavailable THATTE, V CHRIS PA-C Unavailable Unavailable THATTE, V CHRIS PA-C Unavailable Unavailable THATTE, V CHRIS PA-C Unavailable Unavailable THATTE, V CHRIS PA-C Unavailable Unavailable THALIA HARRIS MD Unavailable Unavailable GHARAGOZLCARISA, THALIA KENDRICK Unavailable Unavailable GHARAGOTHALIA BARRAZA MD Unavailable Unavailable GHARAGOZLCARISA, THALIA MD Unavailable Unavailable GHARAGOCHRISTI, THALIA KENDRICK Unavailable Unavailable Re-disclosure Warning The records that you are about to access may contain information from federally-assisted alcohol or drug abuse programs. If such information is present, then the following federally mandated warning applies: This information has been disclosed to you from records protected by federal confidentiality rules (42 CFR part 2). The federal rules prohibit you from making any further disclosure of this information unless further disclosure is expressly permitted by the written consent of the person to whom it pertains or as otherwise permitted by 42 CFR part 2. A general authorization for the release of medical or other information is NOT sufficient for this purpose. The Federal rules restrict any use of the information to criminally investigate or prosecute any alcohol or drug abuse patient.The records that you are about to access may contain highly sensitive health information, the redisclosure of which is protected by Article 27-F of the [facility] Public Health law. If you continue you may have access to information: Regarding HIV / AIDS; Provided by facilities licensed or operated by the [facility] Office of Mental Health; or Provided by the [facility] Office for People With Developmental Disabilities. If such information is present, then the following [facility] mandated warning applies: This information has been disclosed to you from confidential records which are protected by state law. State law prohibits you from making any further disclosure of this information without the specific written consent of the person to whom it pertains, or as otherwise permitted by law. Any unauthorized further disclosure in violation of state law may result in a fine or fpc sentence or both. A general authorization for the release of medical or other information is NOT sufficient authorization for further disc losure. Encounters Encounter Providers Location Date Indications Data Source(s ) Unknown [address] [facility] [address] 08/13/2020 12:00:00 AM EST eCW1 ([facility]) Emergency Attender: BATOOL Wilsoner: JHON LOCKETT DO EMERGENCY ROOM- EMERGENCY ROOM 08/12/2020 06:55:00 PM EST - 08/12/2020 06:55:00 PM [facility] Patient discharged. Unknown [address] [facility] [address] 04/30/2020 12:00:00 AM EDT eCW1 ([facility]) Unknown [address] [facility] [address] 04/23/2020 12:00:00 AM EDT eCW1 ([facility]) Outpatient Attender: SE Mullener: SE BERGMAN DO 04/17/2020 08:00:00 AM EDT - 04/17/2020 08:00:00 AM EDT [facility] pital Outpatient [address] [facility] [id number] 04/13/2020 12:00:00 AM EDT eCW1 ([facility]) Unknown [address] [facility] [place] [address] 04/13/2020 12:00:00 AM EDT eCW1 ([facility]) Outpatient Attender: ASHER العلي MD 12/25/2019 10:57:0 0 AM EDT [facility] Outpatient Attender: CHRIS SIBLEYCReferrer: JHON LOCKETT DO EMERGENCY ROOM-LABOTHPROV 12/23/2019 09:13:00 AM EDT - 12/23/2019 09:13:00 AM EDT [facility] [address] [facility] [place] [address] 11/27/2019 12:00:00 AM EDT eCW1 ([facility]) [facility] [address] [facility] [place] [address] 10/28/2019 12:00:00 AM EDT eCW1 ([facility]) Outpatient Attender: CHRIS POON PA-C 08/28/2019 03:38:00 PM [facility] Outpatient Attender: CHRIS POON PA-C ER-RAD 08/23/2019 02:37:00 AM [facility] Outpatient Attender: THALIA HARRIS MDAttender: CHAZ POON PA-C EMERGENCY ROOM-LABOTHPROV 08/22/2019 12:08:00 PM EST - 08/22/2019 12:08:00 PM [facility] Outpatient Attender: CHRIS POON PA-C ER-CTCMEDONC 08/07/2019 01 :08:00 PM [facility] Admission cancelled. Disregard status an d admitted [place]. [address] [address] 07/26/2019 12:00:00 AM EST eCW1 ([facility]) Outpatient Attender: JAYE NANCE PAConsultant: Charles [facility] [id number] 07/09/2019 09:50:00 AM [facility] Emergency Attender: JAYE SALAZAR EMERGENCY ROOM- ER 07/09/2019 09:33:00 AM EST - 07/09/2019 12:35:00 PM [facility] Patient discharged. Medications Medication Brand Name Start Date Product Form Dose Route Admi nistrative Instructions Pharmacy Instructions Status Indications Reaction Description Data Source(s) 5 mg 04/30/2020 12:00:00 AM EDT tablet 90 TAKE ONE TABLET BY MOUTH EVERY DAY TAKE ONE TABLET BY MOUTH EVERY DAY SOLD: 05/03/2020 [facility] 20 mg 04/30/2020 12:00:00 AM EDT tablet 90 TAKE ONE TABLET BY MOUTH EVERY DAY WITH FOOD TAKE ONE TABLET BY MOUTH EVERY DAY WITH FOOD SOLD: 05/03/2020 [facility] 20 mg 04/30/2020 12:00:00 AM EDT tablet 90 TAKE ONE TABLET BY MOUTH EVERY DAY WITH FOOD TAKE ONE TABLET BY MOUTH EVERY DAY WITH FOOD SOLD: 07/29/2020 [facility] 5 mg 04/30/2020 12:00:00 AM EDT tablet 90 TAKE ONE TABLET BY MOUTH EVERY DAY TAKE ONE TABLET BY MOUTH EVERY DAY SOLD: 07/29/2020 [facility] 5 mg 02/07/2020 12:00:00 AM EDT tablet 90 TAKE ONE TABLET BY MOUTH EVERY DAY TAKE ONE TABLET BY MOUTH EVERY DAY SOLD: 02/11/2020 [facility] 20 mg 01/27/2020 12:00:00 AM EDT tablet 90 TAKE ONE TABLET BY MOUTH EVERY DAY WITH FOOD TAKE ONE TABLET BY MOUTH EVERY DAY WITH FOOD SOLD: 01/28/2020 [facility] 5 mg 08/05/2019 12:00:00 AM EST tablet 90 TAKE ONE TABLET BY MOUTH EVERY DAY TAKE ONE TABLET BY MOUTH EVERY DAY SOLD: 10/25/2019 [facility] 5 mg 08/05/2019 12:00:00 AM EST tablet 90 TAKE ONE TABLET BY MOUTH EVERY DAY TAKE ONE TABLET BY MOUTH EVERY DAY SOLD: 08/06/2019 [facility] 20 mg 07/26/2019 12:00:00 AM EST tablet 90 TAKE ONE TABLET BY MOUTH EVERY DAY WITH FOOD TAKE ONE TABLET BY MOUTH EVERY DAY WITH FOOD SOLD: 10/25/2019 [facility] 20 mg 07/26/2019 12:00:00 AM EST tablet 90 TAKE ONE TABLET BY MOUTH EVERY DAY WITH FOOD TAKE ONE TABLET BY MOUTH EVERY DAY WITH FOOD SOLD: 07/30/2019 [facility] rivaroxaban 20 MG Oral Tablet [Xarelto] Xarelto 20 MG Xarelt o 20 MG 07/26/2019 12:00:00 AM EST active 1 tablet with food eCW1 ([facility]) 15 mg 07/12/2019 12:00:00 AM EST tablet 38 TAKE ONE TABLET BY MOUTH TWO TIMES A DAY FOR 19 DAYS TAKE ONE TABLET BY MOUTH TWO TIMES A DAY FOR 19 DAYS SOLD: 07/12/2019 [facility] 5 mg 07/12/2019 12:00:00 AM EST tablet 30 TAKE ONE TABLET BY MOUTH EVERY DAY TAKE ONE TABLET BY MOUTH EVERY DAY SOLD: 07/12/2019 [facility] Insurance Providers Payer name Policy type / Coverage type Policy ID Covered alliance party ID Covered alliance party's relationship to flores Policy Flores Plan Information [facility] [id number] WI2 [id number] [facility] [id number] SPO [id number] BCBS EMPIRE [id number] SPO [id number] BCBS EMPIRE [id number] SPO [id number] [facility] [id number] SPO [id number] [facility] [id number] WIF [id number] BLUE CROSS [id number] WIF [id number] [facility] [id number] [id number] BCBS [place] DIV [id number] SP [id number] [facility] [id number] S [id number] SELF PAY ONLY [id number] SP [id number] [id number] SP [id number] [facility] [id number] [facility] COMM [id number] SPO [id number] Problems, Conditions, and Diagnoses Code Display Name Description Problem Type Effective Dates Data Source(s) I10 [id number] Essential hypertension Problem 04/13/2020 12 :00:00 AM EDT eCW1 ([facility]) I27.29 [id number] Other secondary pulmonary hypertension Pr oblem 07/26/2019 12:00:00 AM EST eCW1 ([facility]) I27.20 [id number] Pulmonary hypertension Problem 07/26/2019 12 :00:00 AM EST eCW1 ([facility]) I27.20 [id number] Pulmonary hypertension Problem 07/26/2019 12 :00:00 AM EST eCW1 ([facility]) I27.29 [id number] Other secondary pulmonary hypertension Pr oblem 07/26/2019 12:00:00 AM EST eCW1 ([facility]) I70.0 Atherosclerosis of aorta ATHEROSCLEROSIS OF AORTA Diag nosis 04/17/2020 08:00:00 AM EDT [facility] R10.84 Generalized abdominal pain GENERALIZED ABDOMINAL PAIN Diagnosis 04/17/2020 08:00:00 AM EDT [facility] 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 Diagnosis 12/25/2019 09:15:[facility] Other pulmonary embolism without acute c or pulmonale OTHER PULMONARY EMBOLISM WITHOUT ACUTE COR PULMONALE Diagnosis 12/25/2019 09:15:00 AM EDT [facility] J98.11 Atelectasis ATELECTASIS Diagnosis 08/23/2019 02:37:00 AM EST [facility] Z01.812 Encounter for preprocedural laboratory e xamination ENCOUNTER FOR PREPROCEDURAL LABORATORY EXAMINATION Diagnosis 08/22/2019 12:08:00 PM [facility] Z87.891 Personal history of nicotine dependence PERSONAL HISTORY OF NICOTINE DEPENDENCE Diagnosis 08/07/2019 01:08:[address] [facility] yudi I10 Essential (primary) hypertension ESSENTIAL (PRIMARY) H YPERTENSION Diagnosis 08/07/2019 01:08:00 PM [facility] Z82.49 Family history of ischemic h eart disease and other diseases of the circulatory system FAMILY HX OF ISCHEM HEART DIS AND OTH DIS OF THE C Diagnosis 07/09/2019 09:33:00 AM [facility] F17.210 Nicotine dependence, cigarettes, uncompl icated NICOTINE DEPENDENCE, CIGARETTES, UNCOMPLICATED Diagnosis 07/09/2019 09:33:00 AM [facility]ital R09.02 Hypoxemia HYPOXEMIA Diagnosis 07/09/2019 09:33:00 AM [facility] I26.99 Other pulmonary embolism without acute c or pulmonale OTHER PULMONARY EMBOLISM WITHOUT ACUTE COR PULMONA Diagnosis 07/09/2019 09:33:00 AM [facility] R07.9 Chest pain, unspecified CHEST PAIN, UNSPECIFIED Diagno sis 07/09/2019 09:33:00 AM [facility] Surgeries/Procedures Procedure Description Date Indications Data Source(s) PHYSICIAN TELEPHONE EVALUATION 11-20 MIN 10/28/2019 12 :00:00 AM EDT eCW1 ([facility]) Results ID Date Data Source [id number] 08/13/2020 09:03:00 AM [facility] l Patient: DRE NOLAND [facility]VisitID: [id number] [place] [address] [phone], MRegistration Date/Time: 08/12/2020 17:39 Weight:63.9 kg (S). Height/Length:66 inches (S). BMI:22.7 PAST HISTORYProblems:Hypertension [Chronic].Pulmonary Embolism [Resolved]. Additional Surgeries:no known surgeries. Medications:Xarelto Oral (Tablet 10 mg) 1/2 tablet, daily, last dose today 0700.Lisinopril Oral (Tablet 5 mg) 1 tablet, daily, last dose 0700 today. Allergies:No Known Drug Allergy. FAMILY HISTORYNegative. No significant family medical history. (Electronically signed by Gala Vanegas 08/13/2020 08:49) Weight:63.9 kg (S). Height/Length:66 inches (S). BMI:22.7 INSTRUCTIONSYour Current Medications: Your current home medications have been reviewed. CONTINUE TAKING THE FOLLOWING MEDICATIONS:Lisinopril Oral : Tablet 5 mg, 1 tablet daily, Last: 0700 today. Xarelto Oral : Tablet 10 mg, 1/2 tablet daily, Last: today 0700. (Electronically signed by Gala Steward 08/13/2020 06:44) Addenda for DRE NOLAND VisitID: [id number] Date: 08/12/2020 08/13/2020 1:0600:55 08/13/2020 Site #1 removed upon discharge. Catheter intact. Manual pressure and bandaid applied.(Electronically signed by Zita Alves L.P.N. - 08/13/2020 1:06) Name Value Range Interpretation Code Description Data [facility] rce(s) Supporting Document(s) ID Date Data Source [id number] 08/13/2020 12:49:00 AM [facility] TSYSORDER [id number] Name Value Range Interpretation Code Description Data [facility] rce(s) Supporting Document(s) TROPONIN I 0.043 ng/mL 0.0-0.056 [facility] ID Date Data Source [id number] 08/12/2020 09:59:00 PM [facility] TSYSORDER [id number] Name Value Range Interpretation Code Description [facility] TROPONIN I 0.034 ng/mL 0.0-0.056 [facility] ID Date Data Source [id number] 08/12/2020 07:45:00 PM [facility] DATE OF EXAMINATION: 08/12/2020 17:56 EST CHEST 1 VIEW HISTORY: Acute chest pain TECHNIQUE: Single frontal radiograph of chest COMPARISON: 07/09/2019 FINDINGS: No evidence of focal consolidation, pneumothorax or large pleural effusion.Lungs are clear. Mediastinal structures are unremarkable. No aggressive osseouslesions. IMPRESSION: No focal consolidation. Electronically signed in [id number] by: John Burgos M.D. 08/12/2020 19:39 EST Name Value Range Interpretation Code Description Data [facility] rce(s) Supporting Document(s) ID Date Data Source [id number] 08/12/2020 06:51:00 PM EST [facility] TSYSORDER [id number] Name Value Range Interpretation Code Description Data [facility] rce(s) Supporting Document(s) FREE T4 1.4 ng/dL 0.76-1.46 [facility] ID Date Data Source [id number] 08/12/2020 06:51:00 PM EST [facility] TSYSORDER [id number] Name Value Range Interpretation Code Description Data [facility] rce(s) Supporting Document(s) TSH 4.490 uIU/mL 0.36-3.74 [facility] ID Date Data Source [id number] 08/12/2020 06:28:00 PM EST [facility] Name Value Range Interpretation Code Description Data [facility] rce(s) Supporting Document(s) MAGNESIUM 1.8 mg/dL 1.8-2.4 [facility] ID Date Data Source [id number] 08/12/2020 06:28:00 PM EST [facility] Name Value Range Interpretation Code Description Data [facility] rce(s) Supporting Document(s) TROPONIN I < 0.017 ng/mL 0.0-0.056 [facility] ID Date Data Source [id number] 08/12/2020 06:28:00 PM EST [facility] Name Value Range Interpretation Code Description Data [facility] rce(s) Supporting Document(s) LIPASE 145 U/L 73-393 [facility] ID Date Data Source [id number] 08/12/2020 06:28:00 PM EST [facility] Name Value Range Interpretation Code Description Data [facility] rce(s) Supporting Document(s) GLUCOSE 94 mg/dL 74-106 [facility] BLOOD UREA NITROGEN 12 mg/dL 7-18 [facility] ital CREATININE 1.00 mg/dL 0.7-1.3 [facility] SODIUM 135 mmol/L 136-145 L [facility] POTASSIUM 3.4 mmol/L 3.5-5.1 L [facility] CHLORIDE 98 mmol/L 98-107 [facility] CO2 29 mmol/L 21-32 [facility] CALCIUM 9.5 mg/dL 8.5-10.1 [facility] ANION GAP 8.0 mmol/L 5-12 [facility] GLOMERULAR FILTRATION RATE 78 mL/min [facility] GFR IS CALCULATED IN mL/min/1.73m2 LADONNA L FUNCTION: >90MILDLY DECREASED: 60-89MILDY TO MODERATELY DECREASED: 45-59 MODERATELY TO SEVERELY DECREASED: 30-44SEVERELY DECREASED: 15-29RENAL FAILURE: <15 AST 25 U/L 15-37 [facility] ALT 35 U/L 12-78 [facility] ALKALINE PHOSPHATASE 62 U/L 46-116 [facility] pital TOTAL BILIRUBIN 0.4 mg/dL 0.2-1.0 [facility] TOTAL PROTEIN 8.4 g/dl 6.4-8.2 H [facility] ALBUMIN 4.4 gm/dL 3.4-5.0 [facility] ID Date Data Source [id number] 08/12/2020 06:21:00 PM [facility] Name Value Range Interpretation Code Description Data Amrita rce(s) Supporting Document(s) PARTIAL THROMBOPLASTIN TIME 26.3 SECONDS 21.2-27.3 [facility] ID Date Data Source [id number] 08/12/2020 06:21:00 PM [facility] Name Value Range Interpretation Code Description Data Amrita rce(s) Supporting Document(s) PROTHROMBIN TIME (PATIENT) 11.1 SECONDS 9.1-11.6 [facility] INR 1.07 0.87-1.06 H [facility] ID Date Data Source [id number] 08/12/2020 06:04:00 PM [facility] TSYSORDER [id number] Name Value Range Interpretation Code Description Data Amrita rce(s) Supporting Document(s) WHITE BLOOD COUNT 5.5 K/mm3 4.0-10.0 [facility] al RED BLOOD COUNT 4.98 M/mm3 4.50-6.00 [facility] HEMOGLOBIN 15.2 gm/dL 14.0-18.0 [facility] HEMATOCRIT 42.9 % 42.0-54.0 [facility] MEAN CELL VOLUME 86.1 fl 80-96 [facility]AN CORPUSCULAR HEMOGLOBIN 30.5 pg 27.0-31.0 [facility] MEAN CORPUSCULAR HGB CONC 35.4 g/dl 32.0-36.0 [facility] RED CELL DISTRIBUTION WIDTH 11.7 % 10.0-14.5 [facility] PLATELET COUNT 245 K/mm3 172-450 [facility] MEAN PLATELET VOLUME 8.6 fl 9.0-13.0 L [facility] pital GRAN % 46.7 % 50-80.0 L [facility] IG% 0.2 % 0.0-0.2 [facility] LYMPH % 40.0 % 25.0-50.0 [facility] MONO % 10.3 % 2.0-10.0 H [facility] EOS % 2.4 % 0-5.0 [facility] BASO % 0.4 % 0.0-2.0 [facility] GRAN # 2.6 K/mm3 2.0-8.00 [facility] IG# 0.0 K/mm3 0.0-0.2 [facility] LYMPH # 2.2 K/mm3 1.0-5.0 [facility] MONO # 0.6 K/mm3 0.10-1.20 [facility] EOS # 0.1 K/mm3 0.0-0.5 [facility] BASO # 0.0 K/mm3 0.0-0.2 [facility] ID Date Data Source CT ABD & Pelvis w/o Contrast 04/23/2020 06:12:26 AM EDT eCW1 ([facility]) Name Value Range Interpretation Code Description Data Amrita rce(s) Supporting Document(s) eCW1 ([facility]) ID Date Data Source CBC with Differential 04/23/2020 05:51:12 AM EDT eCW1 ([facility]) Name Value Range Interpretation Code Description Data Amrita rce(s) Supporting Document(s) 5.5 eCW1 ([facility]) 4.73 eCW1 ([facility]) 44.0 eCW1 ([facility]) 31.1 eCW1 ([facility]) 14.7 eCW1 ([facility]) 93.0 eCW1 ([facility]) 11.9 eCW1 ([facility]) 33.4 eCW1 ([facility]) 41.4 eCW1 ([facility]) 271 eCW1 ([facility]) 39.6 eCW1 ([facility]) 13.1 eCW1 ([facility]) 1.1 eCW1 ([facility]) 4.4 eCW1 ([facility]) 0.2 eCW1 ([facility]) 2.2 eCW1 ([facility]) 0.7 eCW1 ([facility]) 2.3 eCW1 ([facility]) 0.1 eCW1 ([facility]) ID Date Data Source [id number] 04/20/2020 08:15:00 AM EDT [facility] l DATE OF EXAMINATION: 04/17/2020 8:00 EDT ABD/PEL NO CONTRAST HISTORY: Abdominal pain TECHNIQUE: This CT exam was performed using the following dose reduction techniques:automated exposure control, adjustment of mA and/or kV according to thepatient's size, and use of iterative reconstruction technique. Standard contiguous axial spiral imaging was obtained from the dome of thediaphragms through the symphysis pubis without oral contrast and withoutintravenous contrast administration and with coronal reformatting. FINDINGS: Lower thorax: Unremarkable ABDOMEN: Liver: UnremarkableGallbladder and bile ducts: UnremarkablePancreas: UnremarkableSpleen: UnremarkableAdrenals: UnremarkableKidneys and ureters: Unremarkable unenhancedStomach and bowel: UnremarkableAppendix: No appendicitis PELVIS: Bladder: Unremarkable unenhanced poorly distended therefore difficult toaccurately evaluateReproductive: Unremarkable No free fluid or lymphadenopathy IMPRESSION: Unremarkable noncontrast enhanced CT scan of the abdomen and pelvis with theexception of moderate calcified plaque formation of nonaneurysmal abdominalaorta. Electronically signed in PS360 by: Thalia Harris M.D. 04/17/2020 8:32 EDT Name Value Range Interpretation Code Description Data Amrita rce(s) Supporting Document(s) ID Date Data Source AMYLASE 04/13/2020 02:46:05 AM EDT eCW1 ([facility]) Name Value Range Interpretation Code Description Data Amrita rce(s) Supporting Document(s) 81 eCW1 ([facility]) ID Date Data Source TSH 04/13/2020 02:45:56 AM EDT eCW1 ([facility]) Name Value Range Interpretation Code Description Data Amrita rce(s) Supporting Document(s) 2.560 eCW1 ([facility]) ID Date Data Source MAGNESIUM LEVEL 04/13/2020 02:45:51 AM EDT eCW1 ([facility]) Name Value Range Interpretation Code Description Data Amrita rce(s) Supporting Document(s) 2.2 eCW1 ([facility]) ID Date Data Source LIPASE 04/13/2020 02:45:34 AM EDT eCW1 ([facility]) Name Value Range Interpretation Code Description Data Amrita rce(s) Supporting Document(s) 183 eCW1 ([facility]) ID Date Data Source Comprehensive Metabolic Profile (CMP) 04/13/2020 02:45:30 AM EDT eCW1 ([facility]) Name Value Range Interpretation Code Description Data Amrita rce(s) Supporting Document(s) 87 eCW1 ([facility]) 16 eCW1 ([facility]) 0.88 eCW1 ([facility]) > 60.0 eCW1 ([facility]) 137 eCW1 ([facility]) 103 eCW1 ([facility]) 4.4 eCW1 ([facility]) 29 eCW1 ([facility]) 9.3 eCW1 ([facility]) 55 eCW1 ([facility]) 13 eCW1 ([facility]) 25 eCW1 ([facility]) 0.2 eCW1 ([facility]) 1.1 eCW1 ([facility]) 3.7 eCW1 ([facility]) 7.2 eCW1 ([facility]) ID Date Data Source [id number] 12/23/2019 10:04:00 AM EDT [facility] Name Value Range Interpretation Code Description Data Amrita rce(s) Supporting Document(s) GLUCOSE 91 mg/dL 74-106 [facility] BLOOD UREA NITROGEN 12 mg/dL 7-18 [facility] ital CREATININE 0.9 mg/dL 0.7-1.3 [facility] SODIUM 139 mmol/L 136-145 [facility] POTASSIUM 4.3 mmol/L 3.5-5.1 [facility] CHLORIDE 100 mmol/L 98-107 [facility] CO2 31 mmol/L 21-32 [facility] CALCIUM 9.2 mg/dL 8.5-10.1 [facility] ANION GAP 8.0 mmol/L 5-12 [facility] GLOMERULAR FILTRATION RATE 88 mL/min [facility] GFR IS CALCULATED IN mL/min/1.73m2 ALDONNA L FUNCTION: >90MILDLY DECREASED: 60-89MILDY TO MODERATELY DECREASED: 45-59 MODERATELY TO SEVERELY DECREASED: 30-44SEVERELY DECREASED: 15-29RENAL FAILURE: <15 AST 18 U/L 15-37 [facility] ALT 24 U/L 12-78 [facility] ALKALINE PHOSPHATASE 59 U/L 46-116 [facility] pital TOTAL BILIRUBIN 0.2 mg/dL 0.2-1.0 [facility] TOTAL PROTEIN 7.3 g/dl 6.4-8.2 [facility] ALBUMIN 3.8 gm/dL 3.4-5.0 [facility] ID Date Data Source [id number] 12/23/2019 09:28:00 AM EDT [facility] l Name Value Range Interpretation Code Description Data Amrita rce(s) Supporting Document(s) WHITE BLOOD COUNT 5.2 K/mm3 4.0-10.0 [facility] al RED BLOOD COUNT 4.81 M/mm3 4.50-6.00 [facility] HEMOGLOBIN 14.7 gm/dL 14.0-18.0 [facility] HEMATOCRIT 42.5 % 42.0-54.0 [facility] MEAN CELL VOLUME 88.4 fl 80-96 [facility] MEAN CORPUSCULAR HEMOGLOBIN 30.6 pg 27.0-31.0 [facility] MEAN CORPUSCULAR HGB CONC 34.6 g/dl 32.0-36.0 [facility] RED CELL DISTRIBUTION WIDTH 11.7 % 10.0-14.5 [facility] PLATELET COUNT 241 K/mm3 172-450 [facility] MEAN PLATELET VOLUME 8.6 fl 9.0-13.0 L [facility] pital GRAN % 43.5 % 50-80.0 L [facility] IG% 0.4 % 0.0-0.2 H [facility] LYMPH % 39.1 % 25.0-50.0 [facility] MONO % 12.6 % 2.0-10.0 H [facility] EOS % 3.8 % 0-5.0 [facility] BASO % 0.6 % 0.0-2.0 [facility] GRAN # 2.3 K/mm3 2.0-8.00 [facility] IG# 0.0 K/mm3 0.0-0.2 [facility] LYMPH # 2.1 K/mm3 1.0-5.0 [facility] MONO # 0.7 K/mm3 0.10-1.20 [facility] EOS # 0.2 K/mm3 0.0-0.5 [facility] BASO # 0.0 K/mm3 0.0-0.2 [facility] ID Date Data Source [id number] 08/23/2019 08:34:00 AM EST [facility] Number: [id number] OF EXAMINATIO N: 08/23/2019 7:49 ESTCT ABD&PELV WITH IV&ORAL CONTRHISTORY: Pain abdominal abnormalitiesTECHNIQUE:This CT exam was performed using the following dose reductiontechniques: automated exposure control, adjustment of mA and/or kVaccording to the patient's size, and use of iterative reconstructiontechnique.Standard contiguous axial spiral imaging was obtained from the dome ofthe diaphragms through the symphysis pubis with oral contrast and withintravenous contrast administration and with coronal reformatting.FINDINGS:Lower thorax: Mild dependent atelectatic changesABDOMEN:Liver: UnremarkableGallbladder and bile ducts: UnremarkablePancreas: UnremarkableSpleen: UnremarkableAdrenals: UnremarkableKidneys and ureters: UnremarkableStomach and bowel: Large amount of stool in the rectosigmoidAppendix: NormalPELVIS:Bladder: UnremarkableReproductive: UnremarkableNo free fluid or free airIMPRESSION:Mild bibasilar atelectasis and bulla within the medial basal portionof right lower lobe measuring 7 x 4.5 cm..Electronically signed in PS360 by: Thalia Harris M.D. 08/23/20198:26 EST Reported By: - Donato HARRIS M.D. Signed By: Donato HARRIS M.D. Name Value Range Interpretation Code Description Data Amrita rce(s) Supporting Document(s) ID Date Data Source [id number] 08/22/2019 01:09:00 PM EST [facility] [phone] Name Value Range Interpretation Code Description Data Amrita rce(s) Supporting Document(s) GLOMERULAR FILTRATION RATE >90 mL/min [facility] GFR IS CALCULATED IN mL/min/1.73m2 LADONNA L FUNCTION: >90MILDLY DECREASED: 60-89MILDY TO MODERATELY DECREASED: 45-59 MODERATELY TO SEVERELY DECREASED: 30-44SEVERELY DECREASED: 15-29RENAL FAILURE: <15 ID Date Data Source [id number] 08/22/2019 01:09:00 PM EST [facility] [phone] Name Value Range Interpretation Code Description Data Amrita rce(s) Supporting Document(s) CREATININE 0.8 mg/dL 0.7-1.3 [facility] ID Date Data Source [id number] 08/22/2019 01:09:00 PM EST [facility] [id number] Name Value Range Interpretation Code Description Data Amrita rce(s) Supporting Document(s) BLOOD UREA NITROGEN 12 mg/dL 7-18 [facility] ID Date Data Source [id number] 08/11/2019 11:05:00 AM EST [facility] Performed at: [facility] [place] [address] [id number] Director: Jayson Shine MD, Phone: [phone] at: [address] [id number] Director: Jayson Shine MD, Phone: [phone] at: [address] [id number] Director: aJyson Shine MD, Phone: [phone] at: [address] [id number] Director: Jayson Shine MD, Phone: [phone] Name Value Range Interpretation Code Description Data Amrita rce(s) Supporting Document(s) PTT-LA 35.3 sec 0.0-51.9 [facility] dRVVT 74.0 sec 0.0-47.0 [facility] INTERPRETION Comment: . [facility] Results are consistent with the presence of a lupus anticoagulant.NOTE: Only persistent lupus anticoagulants are thought to be of clinicalsignificance. For this reason, repeat testing in 12 or more weeks after aninitial positive result should be considered to confirm or refute thepresence of a lupus anticoagulant, depending on clinical presentation.Results of lupus anticoagulant tests may be falsely positive in thepresence of certain anticoagulant therapies. DRVVT MIX 55.6 sec 0.0-47.0 [facility] DRVVT CONFIRM 1.6 ratio 0.8-1.2 [facility] ID Date Data Source [id number] 08/11/2019 11:05:00 AM EST [facility] yudi Performed at: [address] [id number] Director: Jayson Shine MD, Phone: [phone] at: [address] [id number] Director: Jayson Shine MD, Phone: [phone] at: [address] [id number] Director: Jayson Shine MD, Phone: [phone] at: [address] [id number] Director: Jayson Shine MD, Phone: [phone] Name Value Range Interpretation Code Description Data Amrita rce(s) Supporting Document(s) IMMUNOFIXATION Comment . [facility] Polyclonal increase detected in one or m oreimmunoglobulins. IgG 1167 mg/dL 700-1600 [facility] IgA 473 mg/dL 90-386 [facility] IgM 38 mg/dL 20-172 [facility] TOTAL PROTEIN 7.3 g/dL 6.0-8.5 [facility] ALBUMIN 3.8 g/dL 2.9-4.4 [facility] BWUZT-5-QGAGGDF 0.2 g/dL 0.0-0.4 [facility] ZNLGV-2-XKOBCMK 0.7 g/dL 0.4-1.0 [facility] al BETA GLOBULIN 1.4 g/dL 0.7-1.3 [facility] GAMMA GLOBULIN 1.1 g/dL 0.4-1.8 [facility] l M-SPIKE Not Observed g/dL Not Observed [facility] ospital GLOBULIN, TOTAL 3.5 g/dL 2.2-3.9 [facility] al A/G RATIO 1.1 0.7-1.7 [facility] PLEASE NOTE: Comment . 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 ID Date Data Source [id number] 08/11/2019 11:05:00 AM EST [facility] Performed at: [facility] [id number] Director: Jayson Shine MD, Phone: [phone] at: [facility] [id number] Director: Jayson Shine MD, Phone: [phone] at: [address] [id number] Director: Jayson Shine MD, Phone: [phone] at: [address] [id number] Director: Jayson Shine MD, Phone: [phone] Name Value Range Interpretation Code Description Data Amrita rce(s) Supporting Document(s) ANTITHROMB.ACT. 130 % 75-135 [facility] Direct Xa inhibitor anticoagulants such as rivaroxaban,apixaban and edoxaban will lead to spuriously elevatedantithrombin activity levels possibly masking a deficiency. ID Date Data Source [id number] 08/07/2019 04:05:00 PM EST [facility] Is this an ANNUAL SCREENING TEST? 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 Height/Length:66 inches (S). BMI:21.8 PAST HISTORYProblems:no known problems. Additional Surgeries:no known surgeries. Medications:None. Allergies:No Known Drug Allergy. FAMILY HISTORYFather: Heart Disease, Hypertension. Brother(s): Heart Disease, Hypertension. (Electronically signed by Gala Steward 07/09/2019 15:41) Name Value Range Interpretation Code Description Data [facility] Supporting Document(s) ID Date Data Source [id number] 07/09/2019 11:11:00 AM EST [facility] DATE OF EXAMINATION: 07/09/2019 10:[address] PULMONARY ANGIOGRAM HISTORY: Pulmonary embolism. Chest pain. Shortness of breath TECHNIQUE: This CT exam was performed using the following dose reduction technique:automated exposure control, adjustment of mA and/or kV according to thepatient's size, and use of iterative reconstruction technique. FINDINGS: Pulmonary Arteries: Moderate to large pulmonary emboli are seen in primarysecondary and tertiary branches of both lungs.Aorta: No dissection or aneurysmLungs: Moderate to severe COPD with bullous changes in the apices. There is apatchy parenchymal disease bilaterally are consistent with pulmonary infarctionPleural space: No effusionHeart: Normal size No pericardial effusion IMPRESSION: Moderate to large bilateral pulmonary emboli with multifocal areas of pulmonaryinfarction superimposed on a background of moderate to severe COPD with biapicalbullous changes. Electronically signed in PS360 by: Thalia Harris M.D. 07/09/2019 11:06 EST Name Value Range Interpretation Code Description Data Amrita rce(s) Supporting Document(s) ID Date Data Source [id number] 07/16/2019 10:06:00 AM EST [facility] Name Value Range Interpretation Code Description Data Amrita rce(s) Supporting Document(s) [facility] ID Date Data Source [id number] 07/09/2019 09:52:00 AM EST [facility] DATE OF EXAMINATION: 07/09/2019 8:54 EST CHEST 1 VIEW HISTORY: Chest pain TECHNIQUE: Single frontal radiograph of chest COMPARISON: None. FINDINGS: Mild right lower lobe atelectasis versus pneumonia is noted. Cardiomediastinalcontours appear normal. IMPRESSION: Mild right lower lobe atelectasis versus pneumonia. If there is any clinicalconcern for pulmonary embolism these findings may be secondary to pulmonaryemboli. Electronically signed in PS360 by: Thalia Harris M.D. 07/09/2019 9:46 EST Name Value Range Interpretation Code Description Data Amrita rce(s) Supporting Document(s) ID Date Data Source [id number] 07/16/2019 10:06:00 AM EST [facility] Name Value Range Interpretation Code Description Data Amrita rce(s) Supporting Document(s) [facility] ID Date Data Source [id number] 07/09/2019 11:16:00 AM EST [facility] TSYSORDER [id number] Name Value Range Interpretation Code Description Data Amrita rce(s) Supporting Document(s) B-TYPE NATRIURETIC PEPTIDE 243 pg/ml 0-125 H [facility] ID Date Data Source [id number] 07/09/2019 10:35:00 AM EST [facility] TSYSORDER [id number] Name Value Range Interpretation Code Description Data Amrita rce(s) Supporting Document(s) MAGNESIUM 1.9 mg/dL 1.8-2.4 [facility] ID Date Data Source [id number] 07/09/2019 10:35:00 AM EST [facility] TSYSORDER [id number] Name Value Range Interpretation Code Description Data Amrita rce(s) Supporting Document(s) TROPONIN I < 0.017 ng/mL 0.0-0.056 [facility] ID Date Data Source [id number] 07/09/2019 10:35:00 AM EST [facility] TSYSORDER [id number] Name Value Range Interpretation Code Description Data Amrita rce(s) Supporting Document(s) LIPASE 54 U/L 73-393 L [facility] ID Date Data Source [id number] 07/09/2019 10:35:00 AM EST [facility] TSYSORDER [id number] Name Value Range Interpretation Code Description Data Amrita rce(s) Supporting Document(s) GLUCOSE 114 mg/dL 74-106 H [facility] BLOOD UREA NITROGEN 11 mg/dL 7-18 [facility] ital CREATININE 0.9 mg/dL 0.7-1.3 [facility] SODIUM 133 mmol/L 136-145 L [facility] POTASSIUM 3.9 mmol/L 3.5-5.1 [facility] CHLORIDE 94 mmol/L 98-107 *L [facility] CO2 27 mmol/L 21-32 [facility] CALCIUM 9.3 mg/dL 8.5-10.1 [facility] ANION GAP 12.0 mmol/L 5-12 [facility] GLOMERULAR FILTRATION RATE 88 mL/min [facility] GFR IS CALCULATED IN mL/min/1.73m2 LADONNA L FUNCTION: >90MILDLY DECREASED: 60-89MILDY TO MODERATELY DECREASED: 45-59 MODERATELY TO SEVERELY DECREASED: 30-44SEVERELY DECREASED: 15-29RENAL FAILURE: <15 AST 19 U/L 15-37 [facility] ALT 16 U/L 12-78 [facility] ALKALINE PHOSPHATASE 70 U/L 46-116 [facility] pital TOTAL BILIRUBIN 0.5 mg/dL 0.2-1.0 [facility] TOTAL PROTEIN 7.9 g/dl 6.4-8.2 [facility] ALBUMIN 3.3 gm/dL 3.4-5.0 [facility] ID Date Data Source [id number] 07/09/2019 10:38:00 AM [facility] TSYSORDER [id number] Name Value Range Interpretation Code Description Data Amrita rce(s) Supporting Document(s) FREE T4 1.34 ng/dL 0.76-1.46 [facility] ID Date Data Source [id number] 07/09/2019 10:38:00 AM [facility] TSYSORDER [id number] Name Value Range Interpretation Code Description Data Amrita rce(s) Supporting Document(s) TSH 2.41 uIU/mL 0.36-3.74 [facility] ID Date Data Source [id number] 07/09/2019 09:53:00 AM EST [facility] TSYSORDER [id number] Name Value Range Interpretation Code Description Data Amrita rce(s) Supporting Document(s) DDIMER 2.78 mg/LFEU 0.19-0.60 H [facility] ID Date Data Source [id number] 07/09/2019 09:53:00 AM EST [facility] TSYSORDER [id number] Name Value Range Interpretation Code Description Data Amrita rce(s) Supporting Document(s) PROTHROMBIN TIME (PATIENT) 10.9 SECONDS 9.2-11.6 [facility] INR 1.05 0.87-1.06 [facility] ID Date Data Source [id number] 07/09/2019 09:53:00 AM EST [facility] TSYSORDER [id number] Name Value Range Interpretation Code Description Data Amrita rce(s) Supporting Document(s) PARTIAL THROMBOPLASTIN TIME 30.1 SECONDS 21.4-30.2 [facility] ID Date Data Source [id number] 07/09/2019 09:44:00 AM EST [facility] TSYSORDER [id number] Name Value Range Interpretation Code Description Data Amrita rce(s) Supporting Document(s) WHITE BLOOD COUNT 15.3 K/mm3 4.0-10.0 [facility] RED BLOOD COUNT 4.93 M/mm3 4.50-6.00 [facility] l HEMOGLOBIN 14.8 gm/dL 14.0-18.0 [facility] HEMATOCRIT 44.0 % 42.0-54.0 [facility] MEAN CELL VOLUME 89.2 fl 80-96 [facility] MEAN CORPUSCULAR HEMOGLOBIN 30.0 pg 27.0-31.0 [facility] MEAN CORPUSCULAR HGB CONC 33.6 g/dl 32.0-36.0 [facility] RED CELL DISTRIBUTION WIDTH 11.9 % 10.0-14.5 [facility] PLATELET COUNT 198 K/mm3 172-450 [facility] MEAN PLATELET VOLUME 8.8 fl 9.0-13.0 L [facility] pital GRAN % 80.2 % 50-80.0 H [facility] IG% 0.2 % 0.0-0.2 [facility] LYMPH % 10.6 % 25.0-50.0 L [facility] MONO % 8.6 % 2.0-10.0 [facility] EOS % 0.1 % 0-5.0 [facility] BASO % 0.3 % 0.0-2.0 [facility] GRAN # 12.3 K/mm3 2.0-8.00 H [facility] IG# 0.0 K/mm3 0.0-0.2 [facility] LYMPH # 1.6 K/mm3 1.0-5.0 [facility] MONO # 1.3 K/mm3 0.10-1.20 H [facility] EOS # 0.0 K/mm3 0.0-0.5 [facility] BASO # 0.0 K/mm3 0.0-0.2 [facility] Procedure Social History Code Duration Value Status Description Data Source(s ) Smoking 04/13/2020 12:00:00 AM EDT Former Smoker completed Former Smoker eCW1 ([facility]) Smoking 04/13/2020 12:00:00 AM EDT Former Smoker completed Former Smoker eCW1 ([facility]) Smoking 04/13/2020 12:00:00 AM EDT Former Smoker completed Former Smoker eCW1 ([facility]) Smoking 04/13/2020 12:00:00 AM EDT Former Smoker completed Former Smoker eCW1 ([facility]) Smoking 04/13/2020 12:00:00 AM EDT Former Smoker completed Former Smoker eCW1 ([facility]) Vital Signs ID Date Data Source UNK Name Value Range Interpretation Code Description Data Source(s) Diastolic blood pressure 84 mm[Hg] 84 mm[Hg] eCW1 ([facility]) Systolic blood pressure 176 mm[Hg] 176 mm[Hg] e CW1 ([facility]) Body temperature 97.7 [degF] 97.7 [degF] eCW1 ( [facility]) Respiratory rate 16 /min 16 /min eCW1 ([facility]) Heart rate 64 /min 64 /min eCW1 ([facility]) Body mass index (BMI) [Ratio] 22.99 kg/m2 22.99 kg/m2 W1 ([facility]) Body height [in_i] eCW1 ([facility]) Body weight 146.8 [lb_av] 146.8 [lb_av] eCW1 ([facility]) Diastolic blood pressure 72 mm[Hg] 72 mm[Hg] eCW1 ([facility]) Systolic blood pressure 117 mm[Hg] 117 mm[Hg] e CW1 ([facility]) Body temperature 99.2 [degF] 99.2 [degF] eCW1 ( [facility]) Respiratory rate 16 /min 16 /min eCW1 ([facility]) Heart rate 60 /min 60 /min eCW1 ([facility]) Body mass index (BMI) [Ratio] 20.80 kg/m2 20.80 kg/m2 W1 ([facility]) Body height [in_us] eCW1 ([facility]) Body weight Measured 132.8 [lb_av] 132.8 [lb_av ] eCW1 ([facility]) Patient Treatment Plan of Care Planned Activity Planned Date Details Description Data Source (s) rivaroxaban 20 MG Oral Tablet [Xarelto] 07/26/2019 12:00:00 AM EST eCW1 ([facility])
[2020-08-19 11:16] LABS: BASO % 0.6 % (0.0-1.0); EOS # 0.1 10^3/uL (0.0-0.5); HEMATOCRIT 45.5 % (42.0-52.0); HEMOGLOBIN 15.3 g/dl (13.5-17.5); LYMPH # 1.3 10^3/uL (1.5-5.0); MEAN CORPUSCULAR HEMOGLOBIN 30.1 pg (27.0-33.0); MEAN CORPUSCULAR HGB CONC 33.6 g/dl (32.0-36.5); MEAN CORPUSCULAR VOLUME 89.4 fl (80.0-96.0); MONO # 0.5 10^3/uL (0.0-0.8); MONO % 8.1 % (0.0-5.0); NEUTROPHILS # 4.4 10^3/uL (1.5-8.5); NEUTROPHILS % 69.1 % (36.0-66.0); PLATELET COUNT, AUTOMATED 238 10^3/uL (150-450); RED BLOOD COUNT 5.09 10^6/uL (4.30-6.10); WHITE BLOOD COUNT 6.3 10^3/uL (4.0-10.0)
[2020-08-19 11:28] LABS: INR 1.44; PROTHROMBIN TIME 17.9 SECONDS (12.5-14.3)
[2020-08-19 11:29] LABS: PARTIAL THROMBOPLASTIN TIME 33.7 SECONDS (24.2-38.5)
--- NOTE | 2020-08-19 11:31 | REP ---
INDICATION: palpitations COMPARISON: 07/10/2019 TECHNIQUE: Portable AP view of the chest FINDINGS: The mediastinum and cardiac silhouette are stable and within normal limits for portable technique. The lung roy are clear without acute consolidation, effusion, or pneumothorax. Previously noted right lower lobe infiltrate has resolved. Skeletal structures are intact. IMPRESSION: No acute cardiopulmonary process appreciated. <Electronically signed by John Burgos > 08/19/20 [id number]
[2020-08-19 11:37] LABS: ERYTHROCYTE SEDIMENTATION RATE 9 mm/hr (0-20)
[2020-08-19 11:50] LABS: ALT/SGPT 23 U/L (12-78); BILIRUBIN,DIRECT < 0.1 MG/DL (0.0-0.2); BILIRUBIN,TOTAL 0.3 MG/DL (0.2-1.0); BLOOD UREA NITROGEN 9 MG/DL (7-18); CALCIUM LEVEL 9.2 MG/DL (8.5-10.1); CARBON DIOXIDE LEVEL 29 MEQ/L (21-32); CHLORIDE LEVEL 102 MEQ/L (98-107); CK-MB VALUE MASS < 1.0 NG/ML (<3.6); CPK CREATINE PHOSPHOKINASE 64 U/L (39-308); CREATININE FOR GFR 0.86 MG/DL (0.70-1.30); FREE T4 1.37 NG/DL (0.76-1.46); GLOMERULAR FILTRATION RATE > 60.0 (>56); GLUCOSE, FASTING 96 MG/DL (70-100); LIPASE 115 U/L (73-393); MB/CK RELATIVE INDEX 1.56 (< OR =4); NT-PRO BNP 60 PG/ML (<125); POTASSIUM SERUM 4.5 MEQ/L (3.5-5.1); SODIUM LEVEL 137 MEQ/L (136-145); TOTAL PROTEIN 7.3 GM/DL (6.4-8.2); TROPONIN I < 0.02 NG/ML (< 0.10)
[2020-08-19] MEDS ORDERED: ISOVUE-370 76% 100ML VIAL As Ordered ONE (12:39)
--- NOTE | 2020-08-19 13:17 | REP ---
INDICATION: chest pain palpitations. COMPARISON: None. TECHNIQUE: Contrast dose: 75 ML of Isovue [address] technique: Helical scanning is acquired and overlapping 1.5 mm and contiguous 3 mm axial images are reformatted. In addition, maximum intensity projection and multiplanar re-formation images are generated in sagittal and coronal imaging projections. FINDINGS: There is good opacification in the pulmonary arterial tree. There is no evidence of vessel cut off or filling defect to suggest pulmonary embolus. Homogeneous opacity is seen in the thoracic aorta. There is no evidence of aneurysm or dissection. Lung window settings demonstrate bands of linear discoid atelectasis in the lingula, left lower lobe, and right lower lobe. There are large air-filled bulla lie in the right upper lobe, right middle lobe, and left upper lobe medially and anteriorly adjacent the mediastinum. There is no evidence of pleural or pericardial effusion. No hilar or mediastinal mass or adenopathy is observed. No adrenal lesion is seen. In the upper abdomen, there is no additional abnormality. IMPRESSION: No CT evidence of pulmonary embolus. Multiple large bullae bilaterally.. Bibasilar discoid atelectasis. No acute disease. <Electronically signed by Aubrey Muniz > 08/19/20 [id number]
[2020-08-19 18:35] LABS: CK-MB VALUE MASS < 1.0 NG/ML (<3.6); CPK CREATINE PHOSPHOKINASE 48 U/L (39-308); MB/CK RELATIVE INDEX 2.08 (< OR =4); TROPONIN I < 0.02 NG/ML (< 0.10)
[2020-08-19 19:06] VITALS: BP 158/85
--- NOTE | 2020-08-19 19:39 | ECGEPIP ---
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
--- NOTE | 2020-08-19 20:02 | ECGEPIP ---
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
== END 2020-08-19 19:08 | disposition home or self-care (01) ==
LOC: M ED 10:23
DX: R00.2 Palpitations (principal); R07.9 Chest pain, unspecified; Z86.711 Personal history of pulmonary embolism; I10 Essential (primary) hypertension; J98.11 Atelectasis; Z87.891 Personal history of nicotine dependence; Z79.01 Long term (current) use of anticoagulants; Z79.899 Other long term (current) drug therapy
CPT/HCPCS: 36415; 71045; 71275; 80048; 80076; 82550; 82553; 83690; 83880; 84439; 84443; 84484; 85025; 85610; 85652; 85730; 86140; 93005; 93041; 94760; 99285; Q9967

== ENCOUNTER → 2020-11-13 | Outpatient (REF) | payer OTHER ==
[2020-11-13 10:02] LABS: BASO % 0.9 % (0.0-1.0); EOS # 0.1 10^3/uL (0.0-0.5); EOS % 2.8 % (0.0-3.0); HEMATOCRIT 44.3 % (42.0-52.0); HEMOGLOBIN 14.4 g/dl (13.5-17.5); LYMPH # 1.6 10^3/uL (1.5-5.0); LYMPH % 36.9 % (24.0-44.0); MEAN CORPUSCULAR HGB CONC 32.5 g/dl (32.0-36.5); MEAN CORPUSCULAR VOLUME 92.3 fl (80.0-96.0); MONO # 0.5 10^3/uL (0.0-0.8); MONO % 11.8 % (2.0-8.0); NEUTROPHILS % 47.1 % (36.0-66.0); PLATELET COUNT, AUTOMATED 270 10^3/uL (150-450); WHITE BLOOD COUNT 4.3 10^3/uL (4.0-10.0)
[2020-11-13 10:49] LABS: ALT/SGPT 27 U/L (12-78); BILIRUBIN,TOTAL 0.4 MG/DL (0.2-1.0); BLOOD UREA NITROGEN 10 MG/DL (7-18); CALCIUM LEVEL 9.9 MG/DL (8.5-10.1); CARBON DIOXIDE LEVEL 30 MEQ/L (21-32); CHLORIDE LEVEL 102 MEQ/L (98-107); CREATININE FOR GFR 0.68 MG/DL (0.70-1.30); GLOMERULAR FILTRATION RATE > 60.0 (>56); GLUCOSE, FASTING 106 MG/DL (70-100); POTASSIUM SERUM 4.4 MEQ/L (3.5-5.1); RHEUMATOID FACTOR QUANT < 10.0 IU/ML (<15.0); SODIUM LEVEL 136 MEQ/L (136-145); THYROXINE (T4) 10.9 UG/DL (4.5-12.0); TOTAL PROTEIN 7.5 GM/DL (6.4-8.2)
[2020-11-13 11:15] LABS: ERYTHROCYTE SEDIMENTATION RATE 8 mm/hr (0-20)
[2020-11-13 11:31] LABS: TOTAL T3 125.2 NG/DL (60.0-181.0)
[2020-11-15 03:09] LABS: ANA (HEP2) Negative (.); CYCLIC CITRULLINATED PEPTIDE 12 units (0-19); Lyme Disease IgG/IgM Antibodie <0.91 ISR (0.00-0.90); Lyme Disease IgM Ab Quantitati <0.80 index (0.00-0.79)
== END ==
LOC: M SFHCCLAY 07:59
PROVIDERS: ATTEND Family Medicine
DX: M79.10 Myalgia, unspecified site (principal); R79.89 Other specified abnormal findings of blood chemistry

== ENCOUNTER → 2021-12-08 | Outpatient (REF) | payer OTHER ==
[~2021-12-08] MED LIST changes: -LISI-898 PO; +LISI5TAB11 PO
[2021-12-08 11:34] LABS: BASO # 0.1 10^3/uL (0.0-0.2); BASO % 1.3 % (0.0-1.0); EOS # 0.3 10^3/uL (0.0-0.5); EOS % 4.8 % (0.0-3.0); HEMATOCRIT 42.7 % (42.0-52.0); LYMPH # 1.8 10^3/uL (1.5-5.0); LYMPH % 33.5 % (24.0-44.0); MEAN CORPUSCULAR HEMOGLOBIN 30.5 pg (27.0-33.0); MEAN CORPUSCULAR HGB CONC 32.8 g/dl (32.0-36.5); MONO # 0.6 10^3/uL (0.0-0.8); NEUTROPHILS # 2.5 10^3/uL (1.5-8.5); NEUTROPHILS % 47.8 % (36.0-66.0); PLATELET COUNT, AUTOMATED 382 10^3/uL (150-450); RED BLOOD COUNT 4.59 10^6/uL (4.30-6.10); WHITE BLOOD COUNT 5.3 10^3/uL (4.0-10.0)
[2021-12-08 12:12] LABS: ALT/SGPT 23 U/L (12-78); BILIRUBIN,TOTAL 0.3 MG/DL (0.2-1.0); BLOOD UREA NITROGEN 13 MG/DL (7-18); CALCIUM LEVEL 9.5 MG/DL (8.5-10.1); CARBON DIOXIDE LEVEL 32 MEQ/L (21-32); CHLORIDE LEVEL 104 MEQ/L (98-107); CREATININE FOR GFR 0.81 MG/DL (0.70-1.30); GLOMERULAR FILTRATION RATE > 60.0 (>56); GLUCOSE, FASTING 103 MG/DL (70-100); POTASSIUM SERUM 4.7 MEQ/L (3.5-5.1); SODIUM LEVEL 139 MEQ/L (136-145)
[2021-12-08 12:13] LABS: ALBUMIN 3.2 GM/DL (3.2-5.2); CHOLESTEROL LEVEL 223 MG/DL (<200); CHOLESTEROL RISK RATIO 4.288 (<5); FREE T4 1.18 NG/DL (0.76-1.46); HDL CHOLESTEROL 52 MG/DL (>40); LDL CHOLESTEROL 149 MG/DL (<100); NON-HDL-C 171 MG/DL; TOTAL PROTEIN 7.1 GM/DL (6.4-8.2); TOTAL T3 116.2 NG/DL (60.0-181.0); TRIGLYCERIDES LEVEL 110 MG/DL (<150)
== END ==
LOC: M SFHCCLAY 07:32
PROVIDERS: ATTEND Family Medicine
DX: I10 Essential (primary) hypertension (principal); R79.89 Other specified abnormal findings of blood chemistry

== ENCOUNTER → 2022-12-15 | Outpatient (REF) | payer OTHER ==
[2022-12-15 12:39] LABS: HEMATOCRIT 46.7 % (42.0-52.0); HEMOGLOBIN 15.2 g/dl (13.5-17.5); MEAN CORPUSCULAR HEMOGLOBIN 30.1 pg (27.0-33.0); MEAN CORPUSCULAR HGB CONC 32.5 g/dl (32.0-36.5); MEAN CORPUSCULAR VOLUME 92.5 fl (80.0-96.0); PLATELET COUNT, AUTOMATED 281 10^3/uL (150-450); RED BLOOD COUNT 5.05 10^6/uL (4.30-6.10); WHITE BLOOD COUNT 6.6 10^3/uL (4.0-10.0)
[2022-12-15 12:47] LABS: ALBUMIN 3.7 G/DL (3.2-5.2); ALKALINE PHOSPHATASE 69 U/L (46-116); ALT/SGPT 29 U/L (7.0-40); AST/SGOT 17 U/L (<34); BILIRUBIN,TOTAL 0.3 MG/DL (0.3-1.2); BLOOD UREA NITROGEN 13 MG/DL (9-23); CALCIUM LEVEL 9.2 MG/DL (8.5-10.1); CARBON DIOXIDE LEVEL 28 MMOL/L (20-31); CHLORIDE LEVEL 102 MMOL/L (98-107); CHOLESTEROL LEVEL 168 MG/DL (<200); CHOLESTEROL RISK RATIO 3.53 (<5); CREATININE FOR GFR 0.73 MG/DL (0.70-1.30); GLOMERULAR FILTRATION RATE > 60.0 (>56); GLUCOSE, FASTING 84 MG/DL (60-100); HDL CHOLESTEROL 47.5 MG/DL (>40); LDL CHOLESTEROL 99.5 MG/DL (<100); NON-HDL-C 120.5 MG/DL; POTASSIUM SERUM 4.7 MMOL/L (3.5-5.1); SODIUM LEVEL 136 MMOL/L (136-145); TOTAL PROTEIN 7.4 G/DL (5.7-8.2); TRIGLYCERIDES LEVEL 105 MG/DL (<150)
[2022-12-15 12:50] LABS: TOTAL T3 149.1 NG/DL (60.0-181.0)
[2022-12-15 12:51] LABS: FREE T4 1.08 NG/DL (0.89-1.76); THYROID STIMULATING HORMONE 2.209 uIU/ML (0.55-4.78)
== END ==
LOC: M SFHCCLAY 07:44
PROVIDERS: ATTEND Family Medicine
DX: I10 Essential (primary) hypertension (principal); E78.2 Mixed hyperlipidemia; R79.89 Other specified abnormal findings of blood chemistry; Z12.5 Encounter for screening for malignant neoplasm of prostate
CPT/HCPCS: 80053; 80061; 84439; 84443; 84480; 85027; G0103

== ENCOUNTER → 2022-12-15 | Outpatient (CLI) | payer BC | LOC: M CLY 08:02 | PROVIDERS: ATTEND Family Medicine | DX: R06.02 Shortness of breath (principal); R91.8 Other nonspecific abnormal finding of lung field ==

== ENCOUNTER → 2023-02-06 | Outpatient (REF) | payer OTHER ==
[2023-02-06 17:55] LABS: BASO % 0.7 % (0.0-1.0); EOS % 0.5 % (0.0-3.0); HEMATOCRIT 46.9 % (42.0-52.0); HEMOGLOBIN 15.2 g/dl (13.5-17.5); LYMPH # 1.6 10^3/uL (1.5-5.0); LYMPH % 27.8 % (24.0-44.0); MEAN CORPUSCULAR HEMOGLOBIN 29.3 pg (27.0-33.0); MEAN CORPUSCULAR HGB CONC 32.4 g/dl (32.0-36.5); MEAN CORPUSCULAR VOLUME 90.4 fl (80.0-96.0); MONO # 0.6 10^3/uL (0.0-0.8); MONO % 10.3 % (2.0-8.0); NEUTROPHILS # 3.4 10^3/uL (1.5-8.5); NEUTROPHILS % 60.3 % (36.0-66.0); PLATELET COUNT, AUTOMATED 247 10^3/uL (150-450); RED BLOOD COUNT 5.19 10^6/uL (4.30-6.10); WHITE BLOOD COUNT 5.7 10^3/uL (4.0-10.0)
[2023-02-06 18:07] LABS: C REACTIVE PROTEIN QUANTITATIV < 0.40 MG/DL (<1.0)
[2023-02-06 18:10] LABS: ALBUMIN 4.2 G/DL (3.2-5.2); ALKALINE PHOSPHATASE 53 U/L (46-116); ALT/SGPT 42 U/L (7.0-40); AST/SGOT 19 U/L (<34); BILIRUBIN,TOTAL 0.5 MG/DL (0.3-1.2); BLOOD UREA NITROGEN 8 MG/DL (9-23); CALCIUM LEVEL 9.7 MG/DL (8.5-10.1); CARBON DIOXIDE LEVEL 28 MMOL/L (20-31); CHLORIDE LEVEL 100 MMOL/L (98-107); CREATININE FOR GFR 0.65 MG/DL (0.70-1.30); GLOMERULAR FILTRATION RATE > 60.0 (>56); GLUCOSE, FASTING 86 MG/DL (60-100); POTASSIUM SERUM 4.7 MMOL/L (3.5-5.1); RHEUMATOID FACTOR QUANT 3.7 IU/ML (<14); SODIUM LEVEL 135 MMOL/L (136-145); TOTAL PROTEIN 7.7 G/DL (5.7-8.2)
[2023-02-06 18:11] LABS: CPK CREATINE PHOSPHOKINASE 79 U/L (46-171)
[2023-02-06 18:14] LABS: ERYTHROCYTE SEDIMENTATION RATE 22 mm/hr (0-20)
== END ==
LOC: M SFHCCLAY 11:42
PROVIDERS: ATTEND Physician Assistant
DX: M25.50 Pain in unspecified joint (principal)

== ENCOUNTER → 2023-06-27 | Outpatient (REF) | payer BC, OTHER ==
[2023-06-27 13:44] LABS: APPEARANCE, URINE CLEAR (CLEAR); BACTERIA, URINE AUTO NEGATIVE (NEGATIVE); BILIRUBIN, URINE AUTO NEGATIVE (NEGATIVE); BLOOD, URINE BLOOD NEGATIVE (NEGATIVE); COLOR, URINE YELLOW (YELLOW); GLUCOSE, URINE (UA) AUTO NEGATIVE (NEGATIVE); KETONE, URINE AUTO NEGATIVE (NEGATIVE); LEUKOCYTE ESTERASE, URINE AUTO NEGATIVE (NEGATIVE); MUCUS, URINE SMALL (NEGATIVE); NITRITE, URINE AUTO NEGATIVE (NEGATIVE); PROTEIN, URINE AUTO NEGATIVE (NEGATIVE); RBC, URINE AUTO 0 /HPF (0-3); SPECIFIC GRAVITY URINE AUTO 1.015 (1.002-1.035); SQUAMOUS EPITHELIAL CELL UR AU 0 /HPF (0-6); UROBILINOGEN, URINE AUTO 0.2 mg/dL (0.0-2.0); WBC, URINE AUTO 0 /HPF (0-3)
[2023-06-27 14:15] LABS: TOTAL PROTEIN,RANDOM URINE 10.1 MG/DL (0.0-14.0)
[2023-06-27 14:19] LABS: CREATININE,RANDOM URINE 104.5 MG/DL
[2023-06-27 14:41] LABS: BASO % 0.9 % (0.0-1.0); EOS # 0.1 10^3/uL (0.0-0.5); EOS % 2.8 % (0.0-3.0); HEMATOCRIT 45.1 % (42.0-52.0); HEMOGLOBIN 15.4 g/dl (13.5-17.5); LYMPH # 1.7 10^3/uL (1.5-5.0); LYMPH % 39.8 % (24.0-44.0); MEAN CORPUSCULAR HEMOGLOBIN 31.2 pg (27.0-33.0); MEAN CORPUSCULAR HGB CONC 34.1 g/dl (32.0-36.5); MEAN CORPUSCULAR VOLUME 91.5 fl (80.0-96.0); MONO # 0.5 10^3/uL (0.0-0.8); MONO % 10.8 % (2.0-8.0); PLATELET COUNT, AUTOMATED 354 10^3/uL (150-450); RED BLOOD COUNT 4.93 10^6/uL (4.30-6.10); WHITE BLOOD COUNT 4.4 10^3/uL (4.0-10.0)
[2023-06-27 14:51] LABS: ERYTHROCYTE SEDIMENTATION RATE 43 mm/hr (0-20)
[2023-06-27 15:12] LABS: COMPLEMENT C3 154.5 MG/DL (90.0-170.0); IRON (FE) 101 UG/DL (65-175); TOTAL 25(OH) VITAMIN D 34.8 NG/ML (20.0-100.0); VITAMIN B12 LEVEL 921 PG/ML (211-911)
[2023-06-27 15:13] LABS: COMPLEMENT C4 43.1 MG/DL (12-36); PERCENT SATURATION 29.1 % (19.7-50.0); TOTAL IRON BINDING CAPACITY 347 UG/DL (250-425)
[2023-06-27 15:14] LABS: ALBUMIN 3.9 G/DL (3.2-5.2); ALKALINE PHOSPHATASE 58 U/L (46-116); ALT/SGPT 43 U/L (7.0-40); AST/SGOT 27 U/L (<34); BILIRUBIN,DIRECT 0.2 MG/DL (<0.4); BILIRUBIN,TOTAL 0.4 MG/DL (0.3-1.2); BLOOD UREA NITROGEN 12 MG/DL (9-23); CALCIUM LEVEL 9.8 MG/DL (8.5-10.1); CARBON DIOXIDE LEVEL 29 MMOL/L (20-31); CHLORIDE LEVEL 103 MMOL/L (98-107); CREATININE FOR GFR 0.74 MG/DL (0.70-1.30); FOLATE 21.51 NG/ML (>5.4); GLOMERULAR FILTRATION RATE > 60.0 (>56); GLUCOSE, FASTING 87 MG/DL (60-100); MAGNESIUM LEVEL 2.2 MG/DL (1.8-2.4); PHOSPHORUS LEVEL 3.6 MG/DL (2.5-4.9); SODIUM LEVEL 138 MMOL/L (136-145); TOTAL PROTEIN 7.7 G/DL (5.7-8.2)
== END ==
LOC: M SFHCRHEU 10:23
PROVIDERS: ATTEND Internal Medicine
DX: R76.8 Other specified abnormal immunological findings in serum (principal); R53.82 Chronic fatigue, unspecified; M79.10 Myalgia, unspecified site; R74.01 Elevation of levels of liver transaminase levels

== ENCOUNTER → 2023-09-19 | Outpatient (CLI) | payer BC | LOC: M SLEEP HO 11:01 | PROVIDERS: ATTEND Internal Medicine | DX: R53.82 Chronic fatigue, unspecified (principal); R06.83 Snoring ==

== ENCOUNTER → 2023-12-21 | Outpatient (REF) | payer BC ==
[2023-12-21 11:49] LABS: HEMOGLOBIN 14.6 g/dl (13.5-17.5); MEAN CORPUSCULAR HEMOGLOBIN 30.9 pg (27.0-33.0); MEAN CORPUSCULAR HGB CONC 33.2 g/dl (32.0-36.5); PLATELET COUNT, AUTOMATED 252 10^3/uL (150-450); RED BLOOD COUNT 4.73 10^6/uL (4.30-6.10); WHITE BLOOD COUNT 4.8 10^3/uL (4.0-10.0)
[2023-12-21 12:25] LABS: ALBUMIN 3.8 G/DL (3.2-5.2); ALKALINE PHOSPHATASE 59 U/L (46-116); ALT/SGPT 36 U/L (7.0-40); AST/SGOT 22 U/L (<34); BILIRUBIN,TOTAL 0.5 MG/DL (0.3-1.2); BLOOD UREA NITROGEN 12 MG/DL (9-23); CARBON DIOXIDE LEVEL 30 MMOL/L (20-31); CHLORIDE LEVEL 101 MMOL/L (98-107); CHOLESTEROL LEVEL 170 MG/DL (<200); CHOLESTEROL RISK RATIO 3.34 (<5); CREATININE FOR GFR 0.76 MG/DL (0.70-1.30); GLOMERULAR FILTRATION RATE > 60.0 (>56); GLUCOSE, FASTING 101 MG/DL (60-100); HDL CHOLESTEROL 50.8 MG/DL (>40); LDL CHOLESTEROL 108.4 MG/DL (<100); NON-HDL-C 119.2 MG/DL; POTASSIUM SERUM 4.6 MMOL/L (3.5-5.1); SODIUM LEVEL 136 MMOL/L (136-145); TOTAL PROTEIN 6.9 G/DL (5.7-8.2); TRIGLYCERIDES LEVEL 54 MG/DL (<150)
[2023-12-21 12:26] LABS: THYROID STIMULATING HORMONE 2.166 uIU/ML (0.55-4.78)
== END ==
LOC: M SFHCCLAY 07:26
PROVIDERS: ATTEND Family Medicine
DX: I10 Essential (primary) hypertension (principal); E78.2 Mixed hyperlipidemia; R79.89 Other specified abnormal findings of blood chemistry